=== PATIENT | male | born 1965 | race Caucasian/White ===

== ENCOUNTER → 2016-06-30 | Outpatient (CLI) | payer MEDICARE, MEDICAID | LOC: GMAM 17:35 | PROVIDERS: ATTEND Family Medicine | DX: E83.42 Hypomagnesemia (principal) ==

== ENCOUNTER → 2016-07-09 | Outpatient (CLI) | payer MEDICARE, MEDICAID | LOC: GMAM 12:02 | PROVIDERS: ATTEND Family Medicine | DX: E83.42 Hypomagnesemia (principal) ==

== ENCOUNTER 2016-07-26 09:38 | Emergency (ER) | payer MEDICARE, MEDICAID ==
[2016-07-26 09:53] VITALS: TEMP 95.6
--- NOTE | 2016-07-26 10:09 | ED.PDOC ---
History of Present Illness - General Chief Complaint: Syncope/Near Syncope Stated Complaint: passed out Time Seen by Provider: 07/26/16 09:58 Source: patient Exam Limitations: no limitations - History of Present Illness Initial Comments: PT STOOD UP, STARTED WALKING TO LEAVE THE HOUSE, BECAME LIGHT HEADED, LOST CONSCIOUSNESS MOMENTARILY, THEN AROUSED ON THE FLOOR. HE FELT BACK TO NORMAL BUT EMS NOTICED WHEN PT WAS WALKING, HE WAS STILL SLIGHTLY LIGHT HEADED. WAS IN HOSP IN [facility] FOR P[facility], BUT HAS BEEN BACK TO HIS USUAL HEALTH SINCE. NO SYNCOPE PRIOR TO TODAY. TAKES VERAPAMIL IN QAM FOR HTN. NO H/O SZ. Precipitating Factors: lightheadedness Context: standing Loss of Consciousness: brief (seconds) Current Symptoms: back to normal Allergies/Adverse Reactions: Allergies NO KNOWN ALLERGY Allergy (Verified 06/15/16 10:16) Home Medications: Ambulatory Orders Amitriptyline HCl 75 mg PO BEDTIME 02/26/16 Atorvastatin Calcium [Lipitor] 10 mg PO DAILY 02/26/16 Ehadbqmpop-Koostqnwmvbza-Hzygd [Butalbital/Acetaminophen/] 1 cap PO PRN Cholecalciferol [Vitamin D3] 3,000 unit PO DAILY 02/26/16 Pancrelipase (Lipase-Protease- [Creon] 1 cap PO TID 02/26/16 Prednisone 10 mg PO DAILY 02/26/16 Verapamil HCl [Verelan] 240 mg PO DAILY 02/26/16 tiZANidine [Zanaflex] 4 mg PO TID 02/26/16 Aspirin [Aspirin EC] 81 mg PO DAILY 06/15/16 Doxycycline (Monohydrate) [Adoxa] 100 mg PO BID 06/15/16 Insulin Detemir [Levemir] 25 unit SUBCU DAILY 06/15/16 Review of Systems - Review of Systems Constitutional: States: no symptoms reported EENTM: States: no symptoms reported Respiratory: States: no symptoms reported. Denies: cough, orthopnea, short of breath, stridor, wheezing Cardiology: States: no symptoms reported. Denies: chest pain, edema, palpitations, syncope Gastrointestinal/Abdominal: States: no symptoms reported Genitourinary: States: no symptoms reported Musculoskeletal: States: no symptoms reported Skin: States: no symptoms reported Neurological: States: no symptoms reported. Denies: headache, numbness, paresthesia, tingling, tremors, weakness Endocrine: States: no symptoms reported Hematologic/Lymphatic: States: no symptoms reported Past Medical History (General) - Patient Medical History Hx Seizures: No Hx Stroke: No Hx Dementia: No Hx Asthma: No Hx of COPD: No Hx Cardiac Disorders: No Hx Congestive Heart Failure: No Hx Pacemaker: No Hx Hypertension: Yes Hx Thyroid Disease: No Hx Diabetes: Yes - dx'ed 1998 Hx Gastroesophageal Reflux: No Hx Renal Disease: Yes - kidney transplant in 1994 for hx ESRD Hx Cancer: Yes Hx of HIV: No Hx Hepatitis C: No Hx MRSA: No Surgical History: cholecystectomy - Vaccination History Hx Tetanus, Diphtheria Vaccination: No Hx Influenza Vaccination: Yes Hx Pneumococcal Vaccination: Yes - Social History Hx Tobacco Use: No Hx Alcohol Use: No Hx Substance Use: No Hx Substance Use Treatment: No Hx Depression: No Physical Exam - Physical Exam General Appearance: Comfortable, No apparent distress Eyes, Ears, Nose, Throat Exam: PERRL/EOMI, TMs normal, pharynx normal, other - mucus membranes dry. 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 MOTOR AND SENSORY NL X 4 EXTREMITIES. Coordination/Gait: normal finger to nose Motor/Sensory: no motor deficit, no sensory deficit, no pronator drift Skin Exam: normal color, warm/dry, other - delayed capillary refill. Lymphatic: no adenopathy Progress - Progress Progress: 07/26/16 11:07 ORTHOSTATIC VS: SUPINE: 105/67 PULSE 77 STANDIN/54 PULSE 97 POS ORTHOSTASIS WITH 20 BPM PULSE INCREASE. 07/26/16 11:17 THE PT IS HYPOTENSIVE FROM DEHYDRATION AND TAKES VERAPAMIL FOR HTN. HE WAS REHYDRATED WITH 1L NS FLUID BOLUS. 07/26/16 11:30 TROP NL (0.02) EKG X 2 SINUS WITH PROLONGED QT INTERVAL. NO ST CHANGES. ACUTE HYPOGLYCEMIA: CMP - GLUCOSE 65 SO I ORDERED ACCUCHECK WHICH WAS 56. UPON INQUIRY, PT HASN'T EATEN ANYTHING YET TODAY AND TOOK HIS INSULIN. THUS ORDERED A MEAL. PT TOLERATED IT WELL. ACUTE RENAL FAILURE: BUN 44, CR 1.91. HAS KNOWN CRF. TODAY ARF FROM DEHYDRATION. BOLUSED. 07/26/16 12:06 REPEAT ORTHOSTATIC VS AFTER BOLUS: SUPINE 113/78 PULSE 77. STANDING 98/65 PULSE 91. ORTHOSTASIS IMPROVED. PT STATES HE IS NO LONGER LIGHT HEADED WHEN STANDING AND WALKING AND WOULD LIKE TO SEE HOW HE DOES AT HOME. INSTRUCTED 64 OZ WATER PER DAY MINIMUM AND TO PUSH FLUIDS TODAY. SAFE FOR D/C TO HOME WITH CLOSE F/U. GAVE RETURN PRECAUTIONS. Departure - Departure Clinical Impression: Orthostatic hypotension, Syncope due to orthostatic hypotension, Light- headedness, Hypovolemia due to dehydration, Acute renal failure (ARF), Hypoglycemia associated with diabetes Disposition: Discharge to Home or Self Care Departure Forms: ED Discharge - Pt. Copy, Patient Portal Self Enrollment Instructions: DI for Dehydration -- Adult Diet: diabetic diet Activity: increase activity as tolerated Referrals: Manohar Daigle MD [Primary Care Provider] - 1-2 Days () Home Medications: Ambulatory Orders Amitriptyline HCl 75 mg PO BEDTIME 02/26/16 Atorvastatin Calcium [Lipitor] 10 mg PO DAILY 02/26/16 Nwcpbeqack-Aavjysofvtzij-Ggauc [Butalbital/Acetaminophen/] 1 cap PO PRN Cholecalciferol [Vitamin D3] 3,000 unit PO DAILY 02/26/16 Pancrelipase (Lipase-Protease- [Creon] 1 cap PO TID 02/26/16 Prednisone 10 mg PO DAILY 02/26/16 Verapamil HCl [Verelan] 240 mg PO DAILY 02/26/16 tiZANidine [Zanaflex] 4 mg PO TID 02/26/16 Aspirin [Aspirin EC] 81 mg PO DAILY 06/15/16 Doxycycline (Monohydrate) [Adoxa] 100 mg PO BID 06/15/16 Insulin Detemir [Levemir] 25 unit SUBCU DAILY 06/15/16 Additional Instructions: You became light-headed because your blood pressure was low due to dehydration. Please be sure to drink at least 64 oz of water per day. Tomorrow morning, if your systolic (the top number) of your blood pressure is below 120, then don't take your Verapamil that day. Verapamil is for high blood pressure but if we are dehydrated, it can drop our blood pressure too low , which is what happened in your situation. Please keep your follow-up appointment with your regular doctor for this (and please let him know you were in the ER for low blood pressure, dehydration, and acute kidney damage from the dehydration) but if you continue not feeling well, then please see him sooner this week or return to the ER. Your blood sugar was low in the ER (56). Please be sure to eat something for breakfast each day. Your kidney tests in the ER reflected the dehydration. Please drink at least 64 ounces of water per day to protect your kidneys.
[2016-07-26] MEDS ORDERED: SODIUM CHLORIDE 0.9% 1000ML 1,000 ML IVS ONE (10:16)
[2016-07-26 12:37] VITALS: BP 107/77; O2SAT 95
== END 2016-07-26 12:34 | disposition home or self-care (01) ==
LOC: ER 09:38
DX: I95.1 Orthostatic hypotension (principal); E86.1 Hypovolemia; E86.0 Dehydration; E11.649 Type 2 diabetes mellitus with hypoglycemia without coma; E11.22 Type 2 diabetes mellitus with diabetic chronic kidney disease; N18.6 End stage renal disease; N17.9 Acute kidney failure, unspecified; Z94.0 Kidney transplant status; Z79.4 Long term (current) use of insulin; Z79.82 Long term (current) use of aspirin; Z79.899 Other long term (current) drug therapy; I12.0 Hypertensive chronic kidney disease with stage 5 chronic kidney disease or end stage renal disease
CPT/HCPCS: 36415; 36416; 80053; 82948; 84484; 85025; 93005; J7030

== ENCOUNTER → 2016-08-05 | Outpatient (CLI) | payer MEDICARE, MEDICAID | END | disposition home or self-care (01) | LOC: GMAM 11:50 | PROVIDERS: ATTEND Family Medicine | DX: M10.9 Gout, unspecified (principal) ==

== ENCOUNTER → 2016-08-07 | Outpatient (CLI) | payer MEDICARE, MEDICAID ==
--- NOTE | 2016-08-09 14:47 | MRI ---
EXAM DESCRIPTION: MR BRAIN WITHOUT IV CONTRAST CLINICAL HISTORY: 51 y/o M, SYNCOPE COMPARISON: None available. TECHNIQUE: Multiplanar multi sequence images of the brain were obtained without gadolinium contrast. FINDINGS: Diffusion-weighted images show no diffusion restriction. Midline structures, including the corpus callosum, pituitary and brainstem, are unremarkable period the ventricles are of normal size and configuration. Physiologic vascular flow voids are noted. There are no extra-axial fluid collections. No posterior fossa lesion period there are small areas of increased T2/FLAIR signal involving periventricular and subcortical white matter in both cerebral hemispheres, nonspecific but likely related to chronic ischemic microvascular disease. No additional dietrich or white matter signal abnormalities are noted period visualized paranasal sinuses and orbits unremarkable. There is no calvarial lesion period IMPRESSION: Chronic ischemic microvascular disease, but no additional intracranial abnormality to explain patient's symptoms. Electronically signed by: Jimbo Cevallos DO 08/09/2016 14:45
== END | disposition home or self-care (01) ==
LOC: MRI 07:32
PROVIDERS: ATTEND Family Medicine
DX: R55 Syncope and collapse (principal)

== ENCOUNTER → 2016-08-28 | Outpatient (CLI) | payer MEDICARE, MEDICAID | END | disposition home or self-care (01) | LOC: GMAM 12:27 | PROVIDERS: ATTEND Family Medicine | DX: R94.5 Abnormal results of liver function studies (principal) ==

== ENCOUNTER 2016-10-14 02:45 | Day surgery (SDC) | payer MEDICARE, MEDICAID ==
[2016-10-14] MEDS ORDERED: LACTATED RINGERS 1,000 ML ONE (05:59)
[2016-10-14] MEDS ORDERED: fentaNYL CITRATE INJ 50 MCG/ML AMP ONE (08:11)
--- NOTE | 2016-10-14 09:12 | OP ---
DATE OF PROCEDURE: 10/14/16 PREOPERATIVE DIAGNOSIS: 1. High risk colon cancer screening. The patient has a history of renal transplant and he has neurofibromatosis. POSTOPERATIVE DIAGNOSIS: 1. Diverticulosis. 2. Neurofibromas. PROCEDURE: 1. Colonoscopy. SURGEON: Placido Bingham MD. COMPLICATIONS: None apparent. BLOOD LOSS: None. MEDICATIONS: Monitored anesthesia care. DESCRIPTION OF PROCEDURE: Informed consent was obtained prior to sedation. The preprocedure cardiopulmonary assessment was satisfactory. The patient was placed in the left lateral decubitus position and was sedated. A digital rectal exam was unremarkable. There were no rectal masses noted. The tip of the Olympus colonoscope was inserted in the rectum and guided over to the cecum. The cecum was identified by locating the ileocecal valve and appendiceal orifice. Prep was fair. There were some segments of the colon that had a very good prep, but others that had some residual liquid stool and prep. I tried to irrigate and suction away this to allow better visualization, but there were a few areas where tiny polyps could have been overlooked. The patient did have a few submucosal masses with the appearance of neurofibromas. There were no lesions that appeared to be adenomatous polyps. The patient had a few diverticula in the sigmoid. Otherwise, the colonoscopy was unremarkable. RECOMMENDATIONS: Because of his transplant status, neurofibromatosis, and since the prep was suboptimal, I certainly recommend a followup colonoscopy in 5 years for screening purposes. #[id number] cc: Loren Daigle MD [facility]
[2016-10-14 09:33] VITALS: BP 143/96; TEMP 97.3; O2SAT 97
[2016-10-14] MEDS ORDERED: PROPOFOL 200 MG/20 ML VIAL IV ONE (10:00)
[2016-10-14] MEDS ORDERED: LIDOCAINE 1% 10 ML VIAL INJ ONE (10:00)
== END 2016-10-14 09:30 | disposition home or self-care (01) ==
LOC: AMB 02:45
PROVIDERS: ATTEND Internal Medicine Gastroenterology
DX: Z12.11 Encounter for screening for malignant neoplasm of colon (principal); K57.30 Diverticulosis of large intestine without perforation or abscess without bleeding; Q85.00 Neurofibromatosis, unspecified; E11.9 Type 2 diabetes mellitus without complications; Z94.0 Kidney transplant status; Z87.891 Personal history of nicotine dependence; Z79.4 Long term (current) use of insulin; Z79.899 Other long term (current) drug therapy
CPT/HCPCS: 00810; 82948; G0121; J3010; J3490; J7120

== ENCOUNTER → 2016-11-30 | Outpatient (CLI) | payer MEDICARE, MEDICAID | END | disposition home or self-care (01) | LOC: GMAM 14:21 | PROVIDERS: ATTEND Family Medicine | DX: M10.9 Gout, unspecified (principal) ==

== ENCOUNTER 2017-06-23 05:53 | Day surgery (SDC) | payer MEDICARE, MEDICAID ==
[2017-06-23] MEDS ORDERED: LACTATED RINGERS 1,000 ML ONE (07:35)
[2017-06-23] MEDS ORDERED: PROPOFOL 200 MG/20 ML VIAL IV ONE (10:00)
[2017-06-23] MEDS ORDERED: LIDOCAINE 1% 10 ML VIAL INJ ONE (10:00)
--- NOTE | 2017-06-23 11:51 | OP ---
DATE OF PROCEDURE: 06/23/17 PREOPERATIVE DIAGNOSIS: 1. Iron deficiency anemia. 2. Guaiac-positive stool. POSTOPERATIVE DIAGNOSIS: 1. Esophagitis. 2. Evidence of duodenectomy. PROCEDURE: 1. Esophagogastroduodenoscopy plus biopsy. SURGEON: Placido Bingham MD. COMPLICATIONS: None apparent. BLOOD LOSS: None. MEDICATIONS: Monitored anesthesia care. DESCRIPTION OF PROCEDURE: Informed consent was obtained prior to sedation. The preprocedure cardiopulmonary assessment was satisfactory. The patient was placed in the left lateral decubitus position and was sedated. The tip of the Olympus esophagogastroduodenoscope was inserted in the oropharynx and carefully advanced through the cricopharyngeus into the esophageal lumen. The esophagus was significant for distal esophagitis. This was biopsied. I think this could certainly be a source of fecal occult positive stool. The stomach was examined with direct and retroflexed views. The antrum, body, fundus, cardia and incisura were closely examined. There were no significant neurofibromas seen. There were no ulcerations. There was no evidence of a bleeding source seen in the stomach. The pylorus was traversed with the tip of the scope and once inside the duodenum, there was evidence of a resection and anastomosis. It looks like he has had resection of his duodenum here. He has both afferent and efferent limbs of small bowel here at the anastomosis. I traversed both and did not see any source of a potential bleeding spot in the 40 cm of each limb that I investigated. I did biopsy him for celiac. The procedure was then terminated. RECOMMENDATIONS: 1. I think the esophagitis could be related to his guaiac-positive stool. 2. With his iron deficiency anemia, it does look like he has had a duodenal resection and it is possible he is just not absorbing iron like he should. I would recommend IV iron replacement if needed. 3. He needs a daily proton pump inhibitor. 4. Call my office in one week for the biopsy results. #[id number] cc: Manohar Daigle MD [facility]
[2017-06-23 13:49] VITALS: O2SAT 98
[2017-06-23 13:56] VITALS: BP 144/93; TEMP 97.7
== END 2017-06-23 12:10 | disposition home or self-care (01) ==
LOC: AMB 05:53
PROVIDERS: ATTEND Internal Medicine Gastroenterology
DX: D50.9 Iron deficiency anemia, unspecified (principal); K20.9 Esophagitis, unspecified; R19.5 Other fecal abnormalities; Q85.00 Neurofibromatosis, unspecified; I10 Essential (primary) hypertension; E11.9 Type 2 diabetes mellitus without complications; E66.9 Obesity, unspecified; J45.909 Unspecified asthma, uncomplicated; Z68.27 Body mass index [BMI] 27.0-27.9, adult; Z87.891 Personal history of nicotine dependence; Z79.4 Long term (current) use of insulin; Z79.899 Other long term (current) drug therapy
CPT/HCPCS: 00740; 36416; 43239; 82948; 88305; J3490; J7120

== ENCOUNTER 2017-06-26 10:08 | Emergency (ER) | payer MEDICARE, MEDICAID ==
[2017-06-26 10:22] VITALS: TEMP 97.3
--- NOTE | 2017-06-26 10:27 | ED.PDOC ---
History of Present Illness - General Chief Complaint: Respiratory Problem Stated Complaint: trouble breathing,legs weak Time Seen by Provider: 06/26/17 10:23 Source: patient, RN notes reviewed, Vital Signs reviewed Additional Information: Pt presents to ER with family member complaining of lower extremity weakness, inability to stand without shaking and difficulty walking. Pt reports noticing this upon waking up this am. He denies other symptoms. He denies difficulty walking last night. - History of Present Illness Timing/Duration: unsure - , just noticed it this am. Severity: moderate Improving Factors: nothing Worsening Factors: nothing Associated Symptoms: weakness - primarily lower extremities Allergies/Adverse Reactions: Allergies NO KNOWN ALLERGY Allergy (Verified 06/15/16 10:16) Home Medications: Ambulatory Orders Amitriptyline HCl 75 mg PO BEDTIME 02/26/16 Atorvastatin Calcium [Lipitor] 10 mg PO DAILY@0700 02/26/16 Odmhqipmws-Hfllioqowngyi-Yysjc [Butalbital/Acetaminophen/] 1 cap PO PRN Cholecalciferol [Vitamin D3] 3,000 unit PO BID 02/26/16 Pancrelipase (Lipase-Protease- [Creon] 1 cap PO TID 02/26/16 Prednisone 10 mg PO DAILY@0700 02/26/16 Verapamil HCl [Verelan] 240 mg PO DAILY@0700 02/26/16 tiZANidine [Zanaflex] 4 mg PO TID 02/26/16 Aspirin [Aspirin EC] 81 mg PO DAILY@0700 06/15/16 Insulin Detemir [Levemir] 25 unit SUBCU QPM 06/15/16 Dietary Management Product [Gabadone] 1 cap PO BEDTIME 06/16/17 Insulin Aspart [Novolog Flexpen] 12 unit SC TID 06/16/17 Review of Systems - Review of Systems Constitutional: States: no symptoms reported EENTM: States: no symptoms reported Respiratory: States: no symptoms reported Cardiology: States: no symptoms reported Gastrointestinal/Abdominal: States: no symptoms reported Genitourinary: States: no symptoms reported Musculoskeletal: States: see HPI Neurological: States: see HPI, weakness - lower extremities Endocrine: States: no symptoms reported Hematologic/Lymphatic: States: no symptoms reported Past Medical History (General) - Patient Medical History Hx Seizures: No Hx Stroke: No Hx Dementia: No Hx Asthma: No Hx of COPD: No Hx Cardiac Disorders: No Hx Congestive Heart Failure: Yes Hx Pacemaker: No Hx Hypertension: Yes Hx Thyroid Disease: No Hx Diabetes: Yes Hx Gastroesophageal Reflux: No Hx Renal Disease: Yes - kidney transplant in 1994 for hx ESRD Hx Cancer: Yes Hx of HIV: No Hx Hepatitis C: No Hx MRSA: No - Vaccination History Hx Tetanus, Diphtheria Vaccination: No Hx Influenza Vaccination: Yes Hx Pneumococcal Vaccination: Yes - Social History Hx Tobacco Use: No Hx Alcohol Use: No Hx Substance Use: No Hx Substance Use Treatment: No Hx Depression: No Family Medical History - Family History Father Family History: Unknown Living Status: Unknown Hx Family Hypertension: Yes Hx Cardiac Disease: Yes Hx Family;Other: neurofibromatosis mom/sister Physical Exam - Physical Exam General Appearance: Alert, No apparent distress - at rest Eye Exam: bilateral abnormal EOM - sluggish, bilaterally Ears, Nose, Throat: hearing grossly normal Neck: non-tender, full range of motion, supple Respiratory: normal breath sounds, no respiratory distress, no accessory muscle use Cardiovascular/Chest: normal peripheral pulses, regular rate, rhythm, no murmur Gastrointestinal/Abdominal: non tender, soft Back Exam: normal inspection Extremity: normal capillary refill 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 Labs and CT Head obtained. History and exam concerning for Central vs Peripheral Neurologic disorder. No respiratory distress noted. No pain reported. Labs and CT Scan reviewed with patient. Patient will likely benefit from transfer to facility with Neurology. - Results/Orders Results/Orders: CXR Report: PROCEDURE: XR CHEST 1 VIEW HISTORY: sob COMPARISON: 06/08/2016 TECHNIQUE: Single projection of the chest was done. FINDINGS: The lung cabezas are well inflated . There are no discrete airspace infiltrates, pneumothoraces or pleural effusions. The pulmonary vascularity is normal. The cardiomediastinal silhouette is stable. IMPRESSION: There is no acute pleural- parenchymal process seen in the imaged lung cabezas. CT Head Impression: IMPRESSION: There is no acute intracranial abnormality. 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 Laboratory Results - last 24 hr 06/26/17 06/26/17 06/26/17 10:39 10:39 10:39 WBC 21.2 H* RBC 4.63 L Hgb 13.2 L Hct 40.8 L MCV 88.0 MCH 28.5 MCHC 32.4 L RDW 14.3 Plt Count 234 MPV 11.6 H Absolute Neuts (auto) 17.50 H Absolute Lymphs (auto) 0.90 L Absolute Monos (auto) 2.60 H Absolute Eos (auto) 0.10 Absolute Basos (auto) 0.10 Neutrophils % 82.6 H Neutrophils % (Manual) 61.0 Lymphocytes % 4.2 L Lymphocytes % (Manual) 5.0 Monocytes % 12.2 H Monocytes % (Manual) 12.0 Eosinophils % 0.3 L Basophils % 0.7 Band Neutrophils 22.0 Sodium 139 Potassium 4.0 Chloride 106 Carbon Dioxide 20 L Anion Gap 17.0 BUN 54 H Creatinine 2.73 H BUN/Creatinine Ratio 19.8 Random Glucose 84 Serum Osmolality 291.5 Calcium 9.9 Magnesium Total Bilirubin 0.5 AST 12 ALT 11 Alkaline Phosphatase 98 Creatine Kinase 50 CK-MB (CK-2) 3.3 CK-MB (CK-2) % Not Reportable Troponin I < 0.02 B-Natriuretic Peptide 216.0 H* Serum Total Protein 8.3 H Albumin 4.0 Globulin 4.3 H Albumin/Globulin Ratio 0.9 L TSH Urine Color Urine Appearance Urine pH Ur Specific Tarrs Urine Protein Urine Glucose (UA) Urine Ketones Urine Blood Urine Nitrite Urine Bilirubin Urine Urobilinogen Ur Leukocyte Esterase Urine RBC Urine WBC Ur Epithelial Cells Urine Bacteria Salicylates Urine Opiates Screen Acetaminophen Urine Barbiturates Ur Phencyclidine Scrn U Amphetamin/Meth Scrn U Benzodiazepines Scrn U Cocaine Metab Screen U Cannabinoids Screen Ethyl Alcohol 06/26/17 06/26/17 06/26/17 11:17 11:17 11:47 WBC RBC Hgb Hct MCV MCH MCHC RDW Plt Count MPV Absolute Neuts (auto) Absolute Lymphs (auto) Absolute Monos (auto) Absolute Eos (auto) Absolute Basos (auto) Neutrophils % Neutrophils % (Manual) Lymphocytes % Lymphocytes % (Manual) Monocytes % Monocytes % (Manual) Eosinophils % Basophils % Band Neutrophils Sodium Potassium Chloride Carbon Dioxide Anion Gap BUN Creatinine BUN/Creatinine Ratio Random Glucose Serum Osmolality Calcium Magnesium Total Bilirubin AST ALT Alkaline Phosphatase Creatine Kinase CK-MB (CK-2) CK-MB (CK-2) % Troponin I B-Natriuretic Peptide Serum Total Protein Albumin Globulin Albumin/Globulin Ratio TSH Urine Color Urine Appearance Urine pH Ur Specific Tarrs Urine Protein Urine Glucose (UA) Urine Ketones Urine Blood Urine Nitrite Urine Bilirubin Urine Urobilinogen Ur Leukocyte Esterase Urine RBC Urine WBC Ur Epithelial Cells Urine Bacteria Salicylates < 4.0 Urine Opiates Screen Negative Acetaminophen < 10.0 L Urine Barbiturates Negative Ur Phencyclidine Scrn Negative U Amphetamin/Meth Scrn Negative U Benzodiazepines Scrn Negative U Cocaine Metab Screen Negative U Cannabinoids Screen Negative Ethyl Alcohol < 5.40 06/26/17 06/26/17 12:13 12:14 WBC RBC Hgb Hct MCV MCH MCHC RDW Plt Count MPV Absolute Neuts (auto) Absolute Lymphs (auto) Absolute Monos (auto) Absolute Eos (auto) Absolute Basos (auto) Neutrophils % Neutrophils % (Manual) Lymphocytes % Lymphocytes % (Manual) Monocytes % Monocytes % (Manual) Eosinophils % Basophils % Band Neutrophils Sodium Potassium Chloride Carbon Dioxide Anion Gap BUN Creatinine BUN/Creatinine Ratio Random Glucose Serum Osmolality Calcium Magnesium 1.8 Total Bilirubin AST ALT Alkaline Phosphatase Creatine Kinase CK-MB (CK-2) CK-MB (CK-2) % Troponin I B-Natriuretic Peptide Serum Total Protein Albumin Globulin Albumin/Globulin Ratio TSH 4.25 Urine Color Yellow Urine Appearance Clear Urine pH 5.5 Ur Specific Tarrs 1.015 Urine Protein Negative Urine Glucose (UA) 500 H Urine Ketones Negative Urine Blood Negative Urine Nitrite Negative Urine Bilirubin Small H Urine Urobilinogen 0.2 Ur Leukocyte Esterase Negative Urine RBC 0 Urine WBC 0 Ur Epithelial Cells 0 Urine Bacteria 0 Salicylates Urine Opiates Screen Acetaminophen Urine Barbiturates Ur Phencyclidine Scrn U Amphetamin/Meth Scrn U Benzodiazepines Scrn U Cocaine Metab Screen U Cannabinoids Screen Ethyl Alcohol 06/26/17 06/26/17 06/26/17 10:14 11:57 14:51 Temperature 97.3 F L Pulse Rate [ 102 H 88 81 Left Brachial] Respiratory 20 20 20 Rate Blood Pressure 92/61 107/67 143/87 [Left Arm] O2 Sat by Pulse 100 97 97 Oximetry Departure - Departure Clinical Impression: Acute renal failure (ARF) Qualifiers: Acute renal failure type: unspecified Qualified Code(s): N17.9 - Acute kidney failure, unspecified Lower extremity weakness Qualifiers: Laterality: bilateral Qualified Code(s): R29.898 - Other symptoms and signs involving the musculoskeletal system Time of Disposition: 14:39 Disposition: Transfer to Hospital Departure Forms: ED Discharge - Pt. Copy, Patient Portal Self Enrollment Referrals: Manohar Daigle MD [Primary Care Provider] - 1-2 Weeks Home Medications: Ambulatory Orders Amitriptyline HCl 75 mg PO BEDTIME 02/26/16 Atorvastatin Calcium [Lipitor] 10 mg PO DAILY@0702/26/16 Eohlsgnbtf-Aketzsemynrzm-Bxcwq [Butalbital/Acetaminophen/] 1 cap PO PRN Cholecalciferol [Vitamin D3] 3,000 unit PO BID 02/26/16 Pancrelipase (Lipase-Protease- [Creon] 1 cap PO TID 02/26/16 Prednisone 10 mg PO DAILY@0702/26/16 Verapamil HCl [Verelan] 240 mg PO DAILY@0702/26/16 tiZANidine [Zanaflex] 4 mg PO TID 02/26/16 Aspirin [Aspirin EC] 81 mg PO DAILY@0706/15/16 Insulin Detemir [Levemir] 25 unit SUBCU QPM 06/15/16 Dietary Management Product [Gabadone] 1 cap PO BEDTIME 06/16/17 Insulin Aspart [Novolog Flexpen] 12 unit SC TID 06/16/17
[2017-06-26] MEDS ORDERED: SODIUM CHLORIDE 0.9% 1000ML 1,000 ML IVS ONE (11:11)
--- NOTE | 2017-06-26 11:12 | RAD ---
PROCEDURE: XR CHEST 1 VIEW HISTORY: sob COMPARISON: 06/08/2016 TECHNIQUE: Single projection of the chest was done. FINDINGS: The lung cabezas are well inflated . There are no discrete airspace infiltrates, pneumothoraces or pleural effusions. The pulmonary vascularity is normal. The cardiomediastinal silhouette is stable. IMPRESSION: There is no acute pleural-parenchymal process seen in the imaged lung cabezas. Location of Interpretation: Teleradiology Electronically signed by: Herman Samaniego MD 06/26/2017 11:11 AM [facility] Workstation: [id number]
[2017-06-26 11:57] VITALS: O2SAT 97
--- NOTE | 2017-06-26 12:12 | CT ---
PROCEDURE: Head HISTORY: generalized weakness Indication: Same as above Comparison: MRI of the brain done on 08/07/2016 Technique: CT of the head was done without intravenous contrast was done in the orthogonal planes. This exam was performed according to our departmental dose-optimization program, which includes automated exposure control, adjustment of the mA and/or KV according to the patient's size and/or use of iterative reconstruction technique. FINDINGS: There is no intracranial hemorrhage, midline shift mass effect or acute focal infarct. There is bifrontal cerebral and bilateral cerebellar atrophy, slightly unusual for patient's age. 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 If clinical concern exists regarding an acute ischemic/vascular pathology being responsible for patient's symptomatology, an MRI of the brain is more sensitive than the current study, in ruling out such a possibility. There is good dietrich/white matter differentiation. The ventricular system is normal. The mastoid air cells are unremarkable . The paranasal sinuses are unremarkable . There is no visualization of acute fractures involving the calvarium or the skull base. IMPRESSION: There is no acute intracranial abnormality. 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 Electronically signed by: Herman Samaniego MD 06/26/2017 12:11 PM [facility] Workstation: [id number]
[2017-06-26 14:52] VITALS: BP 143/87
== END 2017-06-26 14:52 | disposition short-term general hospital (02) ==
LOC: ER 10:08
DX: N17.9 Acute kidney failure, unspecified (principal); R29.898 Other symptoms and signs involving the musculoskeletal system; I11.0 Hypertensive heart disease with heart failure; I50.9 Heart failure, unspecified; Z94.0 Kidney transplant status; Z79.4 Long term (current) use of insulin; Z85.9 Personal history of malignant neoplasm, unspecified; Z79.82 Long term (current) use of aspirin
CPT/HCPCS: 36415; 70450; 71010; 80053; 80307; 80320; 80329; 81001; 82550; 82553; 83735; 83880; 84443; 84484; 85025; J7030

== ENCOUNTER → 2017-07-19 | Outpatient (CLI) | payer MEDICARE, MEDICAID | END | disposition home or self-care (01) | LOC: GMAM 12:04 | PROVIDERS: ATTEND Family Medicine | DX: N18.3 Chronic kidney disease, stage 3 (moderate) (principal); M10.9 Gout, unspecified ==

== ENCOUNTER → 2017-08-17 | Outpatient (CLI) | payer MEDICARE, MEDICAID | LOC: GMAM 14:57 | PROVIDERS: ATTEND Family Medicine | DX: M10.9 Gout, unspecified (principal) ==

== ENCOUNTER → 2017-09-29 | Outpatient (CLI) | payer MEDICARE, MEDICAID | END | disposition home or self-care (01) | LOC: GMAM 10:30 | PROVIDERS: ATTEND Family Medicine | DX: E55.9 Vitamin D deficiency, unspecified (principal); M10.9 Gout, unspecified; Z79.899 Other long term (current) drug therapy; N39.0 Urinary tract infection, site not specified ==

== ENCOUNTER 2017-10-14 05:40 | Day surgery (SDC) | payer MEDICARE, MEDICAID ==
--- NOTE | 2017-10-11 10:13 | RAD ---
EXAM DESCRIPTION: Chest,2 Views CLINICAL HISTORY: PREOP COMPARISON: Previous study June 26, 2017 TECHNIQUE: PA/lateral FINDINGS: There is no acute appearing cardiac or pulmonary abnormality. Heart size is normal with normal pulmonary vascularity. No pleural effusion or pneumothorax. Lungs are clear with no consolidating infiltrate. Lateral view shows intact sternum and T-spine. IMPRESSION: No acute process is identified in the chest. Electronically signed by: Henry Madison MD 10/11/2017 10:09 AM CDT
[2017-10-14] MEDS ORDERED: BUPIVACAINE 0.25% W/EPI 50 ML VIAL INJ ONE (07:20)
[2017-10-14] MEDS ORDERED: ceFAZolin SODIUM 1 GM VIAL ONE (07:21)
[2017-10-14] MEDS ORDERED: LACTATED RINGERS 1,000 ML ONE (07:21)
[2017-10-14] MEDS ORDERED: SODIUM CHL 0.9% 100ML MINI-BAG 100 ML IVPB ONE (07:21)
[2017-10-14] MEDS ORDERED: fentaNYL CITRATE INJ 50 MCG/ML AMP ONE (08:29)
[2017-10-14] MEDS ORDERED: MIDAZOLAM INJ 2 MG/2 ML VIAL ONE (08:29)
[2017-10-14] MEDS ORDERED: HYDROmorphone HCL INJ 2 MG/ML VIAL ONE (09:09)
[2017-10-14] MEDS ORDERED: ROCURONIUM BROMIDE 10 MG/ML VIAL ONE (09:38)
[2017-10-14] MEDS ORDERED: SUGAMMADEX SODIUM 200 MG/2 ML VIAL IV ONE (09:58)
[2017-10-14] MEDS ORDERED: LEVALBUTEROL NEBS 1.25 MG/3 ML VIAL NEB ONE (10:27)
--- NOTE | 2017-10-14 11:30 | OP ---
DATE OF PROCEDURE: 10/14/17 PREOPERATIVE DIAGNOSIS: 1. Reducible umbilical hernia. POSTOPERATIVE DIAGNOSIS: 1. Reducible umbilical hernia with two small reducible incisional hernias superior to the umbilicus. PROCEDURE: 1. Repair of incisional hernia times 2. 2. Repair of umbilical hernia. 3. Placement of Surgimesh Onlay graft. SURGEON: Bk Pelayo MD. WAREHOUSE TRAINER: None. ANESTHESIA: General laryngeal mask and then endotracheal anesthesia and local infiltration of 1% lidocaine. INDICATION: The patient is a 52-year-old male with multiple medical problems that has received cardiac stratification and allowed us to stop his aspirin for 5 days. The patient was brought to the Surgical Suite today for what was thought to be a small reducible umbilical hernia. Upon dissection of the fascia to place mesh, two small incisional hernias were noted superior to the umbilicus. These were likely where suture had pulled through. These were both approximately 1 to 1.5 cm in length and approximately 3 mm across. They ran transversely. The umbilicus had approximately a 2 cm defect transversely and about 1 cm craniocaudad. They all contained some fat which was easily reducible. PROCEDURE: After adequate general laryngeal mask anesthesia was obtained, the patient was prepped and draped in the usual sterile manner. At this point, a surgical time-out was taken. The infraumbilical area was then infiltrated with local anesthesia and a curvilinear but generally transverse incision was made with a sharp knife. Dissection was carried down through the skin and subcutaneous tissue to the midline fascia. When this was done, the retractors were placed and the subcutaneous tissue was dissected free from the umbilical hernia using blunt dissection and electrocautery. When this was completed, the neck of the hernia was incised at its base just superior to the level of the fascia. When it was opened on the inferior aspect, hemostat was introduced and the fat was removed from the hernia and reduced below the floor of the canal. The remaining hernia sac was transected. When this was done, the first hernia was identified just superior and to the patient's right side from the umbilical hernia and the fat from this was reduced below it and it was closed with two [id number] sutures of 2-0 Prolene. At this point, the umbilical hernia was closed with four mctkcu-xe-yseyn sutures of #1 PDS placed serially and then tied superiorly. When this was done, the subcutaneous tissue around the two hernias was dissected free using electrocautery and blunt dissection. When this was done, a second hernia was identified superior to the previous one by about 1.5 cm. It was likewise closed after reducing the fat below the fascia. It was also closed with 2-0 Prolene. When this was done, an approximately 8 by 5 cm oval shaped mesh patch was introduced and sutured over all three repairs with interrupted 2-0 Prolene and 2-0 Vicryl sutures around the margins. When this was done, the wound was irrigated with saline. Hemostasis was noted to be adequate. The umbilicus was then sutured to the fascia and abdominal wall with a [id number] suture of 3-0 Vicryl. The subcutaneous tissues were reapproximated with interrupted 3-0 Vicryl and skin edges were reapproximated with the skin stapler. Sterile pressure dressing was applied. Abdominal binder was applied. The patient was awakened and taken to the Recovery Room in stable condition. Estimated blood loss was less than 75 mL. All sponge, needle and instrument counts were correct. #[id number] [facility]
[2017-10-14 11:32] VITALS: O2SAT 94
[2017-10-14 12:19] VITALS: TEMP 98.2
[2017-10-14 13:30] VITALS: BP 156/84
[2017-10-14] MEDS ORDERED: DEXAMETHASONE INJ 10 MG/ML VIAL ONE (16:10)
[2017-10-14] MEDS ORDERED: raNITIdine HCL INJ 25 MG/ML VIAL ONE (16:10)
[2017-10-14] MEDS ORDERED: LIDOCAINE 1% 10 ML VIAL INJ ONE (16:10)
[2017-10-14] MEDS ORDERED: PROPOFOL 200 MG/20 ML VIAL IV ONE (16:10)
[2017-10-14] MEDS ORDERED: METOCLOPRAMIDE HCL INJ 10 MG/2 ML VIAL ONE (16:10)
== END 2017-10-14 13:20 | disposition home or self-care (01) ==
LOC: AMB 05:40
PROVIDERS: ATTEND Surgery
DX: K42.9 Umbilical hernia without obstruction or gangrene (principal); K43.2 Incisional hernia without obstruction or gangrene; K21.9 Gastro-esophageal reflux disease without esophagitis; J45.909 Unspecified asthma, uncomplicated; I12.9 Hypertensive chronic kidney disease with stage 1 through stage 4 chronic kidney disease, or unspecified chronic kidney disease; E11.22 Type 2 diabetes mellitus with diabetic chronic kidney disease; N18.3 Chronic kidney disease, stage 3 (moderate); F32.9 Major depressive disorder, single episode, unspecified; F41.9 Anxiety disorder, unspecified; G89.29 Other chronic pain; M54.5 Low back pain; E78.2 Mixed hyperlipidemia; G61.0 Guillain-Barre syndrome; Z94.0 Kidney transplant status; Z90.5 Acquired absence of kidney; Z79.82 Long term (current) use of aspirin; Z79.4 Long term (current) use of insulin; Z79.899 Other long term (current) drug therapy
CPT/HCPCS: 00830; 36416; 49560; 49568; 49585; 71046; 80053; 81001; 82948; 85007; 85025; 93005; 94640; C1781; J0690; J1100; J1170; J2250; J2765; J2780; J3010; J3490; J7050; J7120; J7614

== ENCOUNTER 2017-12-22 11:57 | Emergency (ER) | payer OTHER, MEDICAID ==
--- NOTE | 2017-12-22 12:04 | ED.PDOC ---
History of Present Illness - General Chief Complaint: Diabetic Complaint Time Seen by Provider: 12/22/17 11:58 Source: patient, RN notes reviewed, Vital Signs reviewed, EMS notes reviewed Exam Limitations: no limitations - History of Present Illness Timing/Duration: 1 hour Severity: moderate Improving Factors: rest Worsening Factors: nothing Associated Symptoms: diaphoresis, nausea/vomiting, weakness, other - pt ate roca this am and took normal amount of diabetes medications. states that started to feel weak at the eye doctor today. EMS reports that BS was 50's when they showed up and tried oral glucose but BS continue to drop and gave patient an amp of d50. Currently BS is 200's per EMS. Pt reports that currently has no symptoms aside from baseline generalized tremor. No chest pain, sob, abd, numbness or focal weakness. Allergies/Adverse Reactions: Allergies NO KNOWN ALLERGY Allergy (Verified 06/15/16 10:16) Home Medications: Ambulatory Orders Amitriptyline HCl 75 mg PO BEDTIME 02/26/16 Atorvastatin Calcium [Lipitor] 10 mg PO DAILY@0700 02/26/16 Mpirtuqjnm-Fyonpisixqqqx-Geskw [Butalbital/Acetaminophen/] 1 cap PO PRN Cholecalciferol [Vitamin D3] 3,000 unit PO BID 02/26/16 Pancrelipase (Lipase-Protease- [Creon] 1 cap PO TID 02/26/16 Prednisone 7.5 mg PO DAILY@0702/26/16 Verapamil HCl [Verelan] 240 mg PO DAILY@0700 02/26/16 tiZANidine [Zanaflex] 4 mg PO TID 02/26/16 Aspirin [Aspirin EC] 81 mg PO DAILY@0700 06/15/16 Insulin Detemir [Levemir] 25 unit SUBCU QPM 06/15/16 Dietary Management Product [Gabadone] 1 cap PO BEDTIME 06/16/17 Insulin Aspart [Novolog Flexpen] 12 unit SC TID 06/16/17 Albuterol Inhaler PRN 10/08/17 Allopurinol 100 mg PO DAILY 10/08/17 Gabapentin 300 mg PO TID 10/08/17 Lisinopril 2.5 mg PO DAILY 10/08/[address] DAILY 10/08/17 Oxtellar Xr 150 mg PO BEDTIME 10/08/17 Prilosec 20 mg PO DAILY 10/08/17 Stiolto Respimat 2.5-2.5 Mcg/Act DAILY 10/08/17 Tacrolimus 1 mg PO BID 10/08/17 Review of Systems - Review of Systems Constitutional: States: weakness - non focal EENTM: States: other - dry mouth. Denies: eye pain, tearing, double vision, ear pain, ear discharge, nose pain, nose congestion, throat pain, throat swelling, mouth pain, mouth swelling Respiratory: Denies: cough, orthopnea, short of breath, stridor, wheezing Cardiology: Denies: chest pain, edema, palpitations, syncope Gastrointestinal/Abdominal: States: nausea. Denies: abdominal pain, constipation, diarrhea, vomiting Genitourinary: Denies: dysuria, frequency, hematuria, pain Musculoskeletal: Denies: back pain, joint pain, joint swelling, muscle pain, muscle stiffness Skin: States: other - diaphoresis Endocrine: States: no symptoms reported Hematologic/Lymphatic: States: no symptoms reported Past Medical History (General) - Patient Medical History Hx Seizures: No Hx Stroke: No Hx Dementia: No Hx Asthma: No Hx of COPD: No Hx Cardiac Disorders: No Hx Congestive Heart Failure: No Hx Pacemaker: No Hx Hypertension: Yes Hx Thyroid Disease: No Hx Diabetes: Yes Hx Gastroesophageal Reflux: No Hx Renal Disease: Yes - kidney transplant in 1994 for hx ESRD Hx Cancer: Yes Hx of HIV: No Hx Hepatitis C: No Hx MRSA: No - Vaccination History Hx Tetanus, Diphtheria Vaccination: No Hx Influenza Vaccination: Yes Hx Pneumococcal Vaccination: Yes - Social History Hx Tobacco Use: No Hx Alcohol Use: No Hx Substance Use: No Hx Substance Use Treatment: No Hx Depression: No Family Medical History - Family History Father Family History: Unknown Living Status: Unknown Hx Family Hypertension: Yes Hx Cardiac Disease: Yes Hx Family;Other: neurofibromatosis mom/sister Physical Exam - Physical Exam General Appearance: Alert, Well Developed, Well Groomed, Well Nourished Eye Exam: bilateral normal Ears, Nose, Throat: hearing grossly normal, normal ENT inspection, other - dry membranes Neck: non-tender, full range of motion, supple Respiratory: chest non-tender, lungs clear, normal breath sounds, no respiratory distress, no accessory muscle use Cardiovascular/Chest: normal peripheral pulses, regular rate, rhythm, no edema, no gallop, no JVD, no murmur Peripheral Pulses: radial,right: 2+, radial,left: 2+ Gastrointestinal/Abdominal: non tender, soft Back Exam: normal inspection, no CVA tenderness, no vertebral tenderness Extremity: normal range of motion, non-tender, normal inspection, no calf tenderness, pedal edema 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, no motor/sensory deficits, alert, normal mood/affect, oriented x 3 Skin Exam: normal color Lymphatic: no adenopathy Progress - Progress Progress: 12/22/17 13:23 previous cr was 1.4 in 12/22/17 14:16 12/22/17 13:15 GLUCOSE, FINGER STICK Stat 12/22/17 Lunch 1999 Calorie ADA Diet Laboratory Results WBC 11.4 K/mm3 (4.8-10.8) H 12/22/17 12:20 RBC 3.75 M/mm3 (4.70-6.10) L 12/22/17 12:20 Hgb 10.9 gm/dL (14.0-18.0) L 12/22/17 12:20 Hct 33.8 % (42.0-52.0) L 12/22/17 12:20 MCV 90.2 fl (80.0-94.0) 12/22/17 12:20 MCH 29.0 pg (27.0-31.0) 12/22/17 12:20 MCHC 32.2 g/dL (33.0-37.0) L 12/22/17 12:20 RDW 15.4 % (11.5-14.5) H 12/22/17 12:20 Plt Count 201 K/mm3 (130-400) 12/22/17 12:20 MPV 10.8 fl (7.40-10.4) H 12/22/17 12:20 Absolute Neuts (auto) 9.40 K/uL (1.8-6.8) H 12/22/17 12:20 Absolute Lymphs (auto) 0.70 K/uL (1.0-3.4) L 12/22/17 12:20 Absolute Monos (auto) 1.10 K/uL (0.2-0.8) H 12/22/17 12:20 Absolute Eos (auto) 0.10 K/uL (0.0-0.4) 12/22/17 12:20 Absolute Basos (auto) 0.10 K/uL (0.0-0.1) 12/22/17 12:20 Neutrophils % 82.2 % (42.0-78.0) H 12/22/17 12:20 Lymphocytes % 6.5 % (20.0-50.0) L 12/22/17 12:20 Monocytes % 9.4 % (2.0-9.0) H 12/22/17 12:20 Eosinophils % 0.9 % (1.0-5.0) L 12/22/17 12:20 Basophils % 1.0 % (0.0-2.0) 12/22/17 12:20 Sodium 139 mmol/L (135-145) 12/22/17 12:20 Potassium 4.3 mmol/L (3.6-5.0) 12/22/17 12:20 Chloride 110 mmol/L (101-111) 12/22/17 12:20 Carbon Dioxide 21 mmol/L (21-31) 12/22/17 12:20 Anion Gap 12.3 (12-18) 12/22/17 12:20 BUN 41 mg/dL (7-18) H 12/22/17 12:20 Creatinine 2.09 mg/dL (0.6-1.3) H 12/22/17 12:20 BUN/Creatinine Ratio 19.6 (10-20) 12/22/17 12:20 POC Glucose 168 mg/dL (70-105) H 12/22/17 12:55 Random Glucose 174 mg/dL (70-105) H 12/22/17 12:20 Serum Osmolality 291.8 mOsm/L (275-295) 12/22/17 12:20 Calcium 8.8 mg/dL (8.4-10.2) 12/22/17 12:20 Total Bilirubin 0.8 mg/dL (0.2-1.0) 12/22/17 12:20 AST 13 IU/L (10-42) 12/22/17 12:20 ALT 12 IU/L (10-60) 12/22/17 12:20 Alkaline Phosphatase 108 IU/L (42-121) 12/22/17 12:20 Creatine Kinase 67 IU/L (38-174) 12/22/17 12:20 CK-MB (CK-2) 1.7 ng/mL (0.0-4.4) 12/22/17 12:20 CK-MB (CK-2) % Not Reportable 12/22/17 12:20 Troponin I < 0.02 ng/mL (0.01-0.05) 12/22/17 12:20 Serum Total Protein 6.7 gm/dL (6.4-8.2) 12/22/17 12:20 Albumin 3.3 g/dl (3.2-5.5) 12/22/17 12:20 Globulin 3.4 gm/dL (2.3-3.5) 12/22/17 12:20 Albumin/Globulin Ratio 1.0 (1.1-1.9) L 12/22/17 12:20 Urine Color Yellow (Yellow) 12/22/17 13:37 Urine Appearance Clear (Clear) 12/22/17 13:37 Urine pH 5.5 (4.5-7.8) 12/22/17 13:37 Ur Specific [place] 1.025 (1.005-1.030) 12/22/17 13:37 Urine Protein >=300 mg/dL H 12/22/17 13:37 Urine Glucose (UA) 100 mg/dL (Negative) H 12/22/17 13:37 Urine Ketones Negative mg/dL (NEGATIVE) 12/22/17 13:37 Urine Blood Small (Negative) H 12/22/17 13:37 Urine Nitrite Negative 12/22/17 13:37 Urine Bilirubin Negative (NEGATIVE) 12/22/17 13:37 Urine Urobilinogen 1.0 mg/dL (0.2-1.0) 12/22/17 13:37 Ur Leukocyte Esterase Negative (Negative) 12/22/17 13:37 Urine RBC 1-3 /hpf 12/22/17 13:37 Urine WBC 0-1 /hpf 12/22/17 13:37 Ur Epithelial Cells 0 /hpf 12/22/17 13:37 Urine Bacteria Rare 12/22/17 13:37 Departure - Departure Clinical Impression: Hypoglycemia due to insulin, Dehydration, Creatinine elevation, Glucose found in urine on examination Protein in urine Qualifiers: Proteinuria type: unspecified Qualified Code(s): R80.9 - Proteinuria, unspecified Time of Disposition: 14:17 Disposition: Discharge to Home or Self Care Condition: Excellent Departure Forms: ED Discharge - Pt. Copy, Patient Portal Self Enrollment Instructions: DI for Diabetes Type 2 Diet: diabetic diet Activity: increase activity as tolerated Referrals: Manohar Daigle MD [Primary Care Provider] - 1-2 Days (needs repeat Cr. check) Home Medications: Ambulatory Orders Amitriptyline HCl 75 mg PO BEDTIME 02/26/16 Atorvastatin Calcium [Lipitor] 10 mg PO DAILY@0700 02/26/16 Xefnhtdbie-Czbzdahirwalk-Jrjtd [Butalbital/Acetaminophen/] 1 cap PO PRN Cholecalciferol [Vitamin D3] 3,000 unit PO BID 02/26/16 Pancrelipase (Lipase-Protease- [Creon] 1 cap PO TID 02/26/16 Prednisone 7.5 mg PO DAILY@0702/26/16 Verapamil HCl [Verelan] 240 mg PO DAILY@0702/26/16 tiZANidine [Zanaflex] 4 mg PO TID 02/26/16 Aspirin [Aspirin EC] 81 mg PO DAILY@0706/15/16 Insulin Detemir [Levemir] 25 unit SUBCU QPM 06/15/16 Dietary Management Product [Gabadone] 1 cap PO BEDTIME 06/16/17 Insulin Aspart [Novolog Flexpen] 12 unit SC TID 06/16/17 Albuterol Inhaler PRN 10/08/17 Allopurinol 100 mg PO DAILY 10/08/17 Gabapentin 300 mg PO TID 10/08/17 Lisinopril 2.5 mg PO DAILY 10/08/[address] DAILY 10/08/17 Oxtellar Xr 150 mg PO BEDTIME 10/08/17 Prilosec 20 mg PO DAILY 10/08/17 Stiolto Respimat 2.5-2.5 Mcg/Act DAILY 10/08/17 Tacrolimus 1 mg PO BID 10/08/17 Additional Instructions: increase fluids and eat regular meals, f/u with pcp for repeat lab work on Wednesday. Return if symptoms return
[2017-12-22 12:08] VITALS: TEMP 98.2
[2017-12-22] MEDS ORDERED: SODIUM CHLORIDE 0.9% 500ML 500 ML IVS ONE (13:29)
[2017-12-22] MEDS ORDERED: INSULIN, REG.(HUMAN) 100 U/ML VIAL ONE (14:20)
[2017-12-22] MEDS ORDERED: INSULIN, REG.(HUMAN) 100 U/ML VIAL SUBCU ONE (14:28)
[2017-12-22 14:43] VITALS: BP 154/108; O2SAT 95
== END 2017-12-22 14:52 | disposition home or self-care (01) ==
LOC: ER 11:57
DX: E11.649 Type 2 diabetes mellitus with hypoglycemia without coma (principal); T38.3X5A Adverse effect of insulin and oral hypoglycemic [antidiabetic] drugs, initial encounter; E86.0 Dehydration; R80.9 Proteinuria, unspecified; R94.4 Abnormal results of kidney function studies; R81 Glycosuria; I10 Essential (primary) hypertension; Z79.4 Long term (current) use of insulin; Z94.0 Kidney transplant status; Z79.82 Long term (current) use of aspirin; Z79.899 Other long term (current) drug therapy
CPT/HCPCS: 36415; 36416; 80053; 81001; 82550; 82553; 82948; 84484; 85025; J7040

== ENCOUNTER 2017-12-25 09:57 | Emergency (ER) | payer OTHER, MEDICAID ==
[2017-12-25 10:07] VITALS: TEMP 98.2
--- NOTE | 2017-12-25 10:25 | ED.PDOC ---
History of Present Illness - General Chief Complaint: Neuro Symptoms/Deficits Stated Complaint: decreased LOC Time Seen by Provider: 12/25/17 10:14 Source: patient, family Exam Limitations: clinical condition - History of Present Illness Initial Comments: Family noted a snoring sound and when they came to see the patient he seemed confused. THE AMBULANCE WAS CALLED. BBG WAS 70. IT SEEMS THAT THE PATIENT SLOWLY IS BECOMING MORE ALERT. THE PATIENT SAYS THAT HE HAS HAD SEIZURES IN THE PAST AND HIS LAST SEIZURE WAS IN 1994. HE THEN WAS ON DILANTIN. Timing/Duration: 1/2 hour Severity: moderate Improving Factors: rest Associated Symptoms: confusion Allergies/Adverse Reactions: Allergies NO KNOWN ALLERGY Allergy (Verified 06/15/16 10:16) Home Medications: Ambulatory Orders Atorvastatin Calcium [Lipitor] 10 mg PO DAILY@0702/26/16 Cholecalciferol [Vitamin D3] 50,000 unit PO WKLY 02/26/16 Pancrelipase (Lipase-Protease- [Creon] 2 cap PO TID 02/26/16 Prednisone 7.5 mg PO DAILY@0702/26/16 Verapamil HCl [Verelan] 240 mg PO DAILY@69902/26/16 tiZANidine [Zanaflex] 4 mg PO TID 02/26/16 Aspirin [Aspirin EC] 81 mg PO DAILY@0706/15/16 Insulin Detemir [Levemir] 25 unit SUBCU QPM 06/15/16 Insulin Aspart [Novolog Flexpen] 12 unit SC TID 06/16/17 Albuterol Inhaler [Ventolin Hfa Inhaler] 2 puff INH PRN 12/25/17 Allopurinol [Zyloprim] 100 mg PO DAILY 12/25/17 Gabapentin 300 mg PO TID 12/25/17 Lisinopril 2.5 mg PO DAILY 12/25/17 Metoprolol Succinate [Toprol XL] 25 mg PO DAILY 12/25/17 Mycophenolate Sodium [Myfortic] 360 mg PO BID 12/25/17 Omeprazole 20 mg PO DAILY 12/25/17 Sodium Bicarbonate (Antacid) [Sodium Bicarbonate] 1,300 mg PO BID 12/25/17 Tacrolimus 1 mg PO BID 12/25/17 Review of Systems - Review of Systems Constitutional: States: no symptoms reported EENTM: States: mouth pain Respiratory: States: no symptoms reported Cardiology: States: no symptoms reported Gastrointestinal/Abdominal: States: no symptoms reported Genitourinary: States: no symptoms reported Musculoskeletal: States: no symptoms reported Skin: States: no symptoms reported Neurological: States: weakness Endocrine: States: no symptoms reported Hematologic/Lymphatic: States: no symptoms reported Past Medical History (General) - Patient Medical History Hx Seizures: No Hx Stroke: No Hx Dementia: No Hx Asthma: No Hx of COPD: No Hx Cardiac Disorders: No Hx Congestive Heart Failure: No Hx Pacemaker: No Hx Hypertension: Yes Hx Thyroid Disease: No Hx Diabetes: Yes Hx Gastroesophageal Reflux: No Hx Renal Disease: Yes - kidney transplant in 1994 for hx ESRD Hx Cancer: Yes Hx of HIV: No Hx Hepatitis C: No Hx MRSA: No - Vaccination History Hx Tetanus, Diphtheria Vaccination: No Hx Influenza Vaccination: Yes Hx Pneumococcal Vaccination: Yes - Social History Hx Tobacco Use: Yes Hx Chewing Tobacco Use: No Hx Alcohol Use: No Hx Substance Use: No Hx Substance Use Treatment: No Hx Depression: No - Female History Patient : No Family Medical History - Family History Father Family History: Unknown Living Status: Unknown Hx Family Hypertension: Yes Hx Cardiac Disease: Yes Hx Family;Other: neurofibromatosis mom/sister Physical Exam - Physical Exam General Appearance: Alert, Other - STILL SOMEWHAT CONFUSED ENT Exam: other - ON THE LEFT SIDE OF THE TONGUE HE HAS A BITE. 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 HE TAKES ANTIREJECTION MEDS FOR A KIDNEY TRANSPLANTATION. HE HASN'T HAD A SEIZURE IN YEARS. GIVEN HIS COMPLICATED MEDICAL PROBLEMS. NO ANTIEPILEPTIC MEDS WILL BE GIVEN. I SUGGEST HE FOLLOW WITH HIS PCP AND RETURN TO THE ED IF HE HAS ANOTHER SEIZURE. - Results/Orders Results/Orders: CT OF THE BRAIN IS NEGATIVE FOR ACUTE INJURY. THE CXR IS NEGATIVE ON PRELIMINARY REPORT. LABORATORY REPORT HAS A SLIGHT ELEVATION ON THE CREATININE. Departure - Departure Clinical Impression: Seizure Time of Disposition: 12:47 Disposition: Discharge to Home or Self Care Condition: Good Departure Forms: ED Discharge - Pt. Copy, Patient Portal Self Enrollment Instructions: Epilepsy in Adults Referrals: Manohar Daigle MD [Primary Care Provider] - 1-2 Weeks Home Medications: Ambulatory Orders Atorvastatin Calcium [Lipitor] 10 mg PO DAILY@0700 02/26/16 Cholecalciferol [Vitamin D3] 50,000 unit PO WKLY 02/26/16 Pancrelipase (Lipase-Protease- [Creon] 2 cap PO TID 02/26/16 Prednisone 7.5 mg PO DAILY@0700 02/26/16 Verapamil HCl [Verelan] 240 mg PO DAILY@0702/26/16 tiZANidine [Zanaflex] 4 mg PO TID 02/26/16 Aspirin [Aspirin EC] 81 mg PO DAILY@0700 06/15/16 Insulin Detemir [Levemir] 25 unit SUBCU QPM 06/15/16 Insulin Aspart [Novolog Flexpen] 12 unit SC TID 06/16/17 Albuterol Inhaler [Ventolin Hfa Inhaler] 2 puff INH PRN 12/25/17 Allopurinol [Zyloprim] 100 mg PO DAILY 12/25/17 Gabapentin 300 mg PO TID 12/25/17 Lisinopril 2.5 mg PO DAILY 12/25/17 Metoprolol Succinate [Toprol XL] 25 mg PO DAILY 12/25/17 Mycophenolate Sodium [Myfortic] 360 mg PO BID 12/25/17 Omeprazole 20 mg PO DAILY 12/25/17 Sodium Bicarbonate (Antacid) [Sodium Bicarbonate] 1,300 mg PO BID 12/25/17 Tacrolimus 1 mg PO BID 12/25/17
--- NOTE | 2017-12-25 11:23 | CT ---
Procedure: XR CHEST 1 VIEW, CT HEAD WITHOUT IV CONTRAST Exam Date: 12/25/2017 10:18 AM CDT Ordering Provider: Levy Arenas Clinical Indication: Altered mental status Comparison: None Technique: CT images of the head were obtained without contrast administration. Coronal and sagittal reformats were obtained. This exam was performed according to our departmental dose-optimization program which includes automated exposure control, adjustment of the mA and/or kV according to patient size and/or use of iterative reconstruction technique. Findings: There is no acute cortical infarction, hemorrhage, midline shift, mass effect, or hydrocephalus. Small amount of air is seen within the bilateral cavernous sinuses as well as the superior sagittal sinus and the straight sinus. The calvaria and skull base are unremarkable. Paranasal sinuses and mastoid air cells are well aerated. Impression: No acute cortical infarction or hemorrhage. Small amount of air in the major intracranial dural venous sinuses. This could be iatrogenic. Electronically signed by: To Meehan MD 12/25/2017 11:22 AM CDT
[2017-12-25 13:18] VITALS: BP 167/99; O2SAT 94
== END 2017-12-25 13:00 | disposition home or self-care (01) ==
LOC: ER 09:57
DX: R56.9 Unspecified convulsions (principal); I10 Essential (primary) hypertension; E11.9 Type 2 diabetes mellitus without complications; Z94.0 Kidney transplant status; Z79.4 Long term (current) use of insulin; Z79.899 Other long term (current) drug therapy

== ENCOUNTER → 2018-01-12 | Outpatient (CLI) | payer OTHER, MEDICAID | LOC: GMAM 16:45 | PROVIDERS: ATTEND Family Medicine | DX: R56.9 Unspecified convulsions (principal) ==

== ENCOUNTER 2018-01-15 15:06 | Emergency (ER) | payer OTHER, MEDICAID ==
--- NOTE | 2018-01-15 15:42 | ED.PDOC ---
History of Present Illness - General Chief Complaint: Respiratory Problem Stated Complaint: SOB, low O2 sat Time Seen by Provider: 01/15/18 15:38 Source: patient Exam Limitations: no limitations - History of Present Illness Initial Comments: SHORTNESS OF BREATH. THE EMS BRINGS THIS PATIENT THAT EVIDENTLY WAS SATURATING ABOUT 75% AT ROOM AIR. HE WAS GIVEN A ZOPENEX TREATMENT AND PLACED IN A NON REBREATHER AND TRANSPORTED TO THE ED. HE IS THE RECIPIENT OF A KIDNEY ON IMMUNOSUPRESSIVE THERAPY. HE HAS NEUROFIBROMATOSIS. DENIES ANY FEVER. Allergies/Adverse Reactions: Allergies NO KNOWN ALLERGY Allergy (Verified 06/15/16 10:16) Home Medications: Ambulatory Orders Atorvastatin Calcium [Lipitor] 10 mg PO DAILY@0702/26/16 Cholecalciferol [Vitamin D3] 50,000 unit PO WKLY 02/26/16 Pancrelipase (Lipase-Protease- [Creon] 2 cap PO TID 02/26/16 Prednisone 7.5 mg PO DAILY@0702/26/16 Verapamil HCl [Verelan] 240 mg PO DAILY@69902/26/16 tiZANidine [Zanaflex] 4 mg PO TID 02/26/16 Aspirin [Aspirin EC] 81 mg PO DAILY@0706/15/16 Insulin Detemir [Levemir] 25 unit SUBCU QPM 06/15/16 Insulin Aspart [Novolog Flexpen] 12 unit SC TID 06/16/17 Albuterol Inhaler [Ventolin Hfa Inhaler] 2 puff INH PRN 12/25/17 Allopurinol [Zyloprim] 100 mg PO DAILY 12/25/17 Gabapentin 300 mg PO TID 12/25/17 Lisinopril 2.5 mg PO DAILY 12/25/17 Metoprolol Succinate [Toprol XL] 25 mg PO DAILY 12/25/17 Mycophenolate Sodium [Myfortic] 360 mg PO BID 12/25/17 Omeprazole 20 mg PO DAILY 12/25/17 Sodium Bicarbonate (Antacid) [Sodium Bicarbonate] 1,300 mg PO BID 12/25/17 Tacrolimus 1 mg PO BID 12/25/17 Review of Systems - Review of Systems Constitutional: States: weakness EENTM: States: no symptoms reported Respiratory: States: cough, orthopnea, short of breath, wheezing Cardiology: States: edema Gastrointestinal/Abdominal: States: no symptoms reported Genitourinary: States: no symptoms reported Musculoskeletal: States: no symptoms reported Skin: States: no symptoms reported Neurological: States: no symptoms reported Endocrine: States: no symptoms reported Hematologic/Lymphatic: States: no symptoms reported Past Medical History (General) - Patient Medical History Hx Seizures: No Hx Stroke: No Hx Dementia: No Hx Asthma: No Hx of COPD: No Hx Cardiac Disorders: Yes - hypercholesterolemia Hx Congestive Heart Failure: Yes Hx Pacemaker: No Hx Hypertension: Yes Hx Thyroid Disease: No Hx Diabetes: Yes Hx Gastroesophageal Reflux: Yes - Crohn's Hx Renal Disease: Yes - kidney transplant in 1994 for hx ESRD Hx Cancer: Yes Hx of HIV: No Hx Hepatitis C: No Hx MRSA: No - Vaccination History Hx Tetanus, Diphtheria Vaccination: No Hx Influenza Vaccination: Yes Hx Pneumococcal Vaccination: Yes - Social History Hx Tobacco Use: Yes Hx Chewing Tobacco Use: No Hx Alcohol Use: No Hx Substance Use: No Hx Substance Use Treatment: No Hx Depression: No - Female History Patient : No Family Medical History - Family History Father Family History: Unknown Living Status: Unknown Hx Family Hypertension: Yes Hx Cardiac Disease: Yes Hx Family;Other: neurofibromatosis mom/sister Physical Exam - Physical Exam General Appearance: Anxious, Well Developed, Well Groomed, Well Hydrated, Well Nourished Eyes, Ears, Nose, Throat Exam: PERRL/EOMI, pharynx normal Neck: full range of motion, supple, normal inspection Respiratory: crackles, rales Cardiovascular/Chest: normal peripheral pulses, no edema, no gallop Peripheral Pulses: radial,right: 2+, radial,left: 2+ Gastrointestinal/Abdominal: normal bowel sounds, non tender, soft, no organomegaly, no pulsatile mass Rectal Exam: deferred Extremity: normal range of motion, pedal edema, swelling Neurologic: alert, normal mood/affect, other - SOMNOLENT Skin Exam: normal color Lymphatic: no adenopathy Progress - Results/Orders Results/Orders: CXR WITH CONGESTIVE HEART FAILURE, WILL GIVE LASIX. I HAVE DISCUSSED THE CASE WITH DR. GLORIA (FOR DR. BILLINGSLEY)) WILL TRANSFER THE PATIENT TO THE [facility]. HE ACCEPTS THE PATIENT. Departure - Departure Clinical Impression: Kidney transplant recipient Congestive heart failure Qualifiers: Congestive heart failure type: diastolic Congestive heart failure chronicity: acute on chronic Qualified Code(s): I50.33 - Acute on chronic diastolic ( congestive) heart failure [id number] kidney injury Qualifiers: Acute renal failure type: unspecified Chronic kidney disease stage: stage 2 ( mild) Qualified Code(s): N17.9 - Acute kidney failure, unspecified; N18.2 - Chronic kidney disease, stage 2 (mild) Disposition: Transfer to Hospital Condition: Good Home Medications: Ambulatory Orders Atorvastatin Calcium [Lipitor] 10 mg PO DAILY@0702/26/16 Cholecalciferol [Vitamin D3] 50,000 unit PO WKLY 02/26/16 Pancrelipase (Lipase-Protease- [Creon] 2 cap PO TID 02/26/16 Prednisone 7.5 mg PO DAILY@69902/26/16 Verapamil HCl [Verelan] 240 mg PO DAILY@69902/26/16 tiZANidine [Zanaflex] 4 mg PO TID 02/26/16 Aspirin [Aspirin EC] 81 mg PO DAILY@0706/15/16 Insulin Detemir [Levemir] 25 unit SUBCU QPM 06/15/16 Insulin Aspart [Novolog Flexpen] 12 unit SC TID 06/16/17 Albuterol Inhaler [Ventolin Hfa Inhaler] 2 puff INH PRN 12/25/17 Allopurinol [Zyloprim] 100 mg PO DAILY 12/25/17 Gabapentin 300 mg PO TID 12/25/17 Lisinopril 2.5 mg PO DAILY 12/25/17 Metoprolol Succinate [Toprol XL] 25 mg PO DAILY 12/25/17 Mycophenolate Sodium [Myfortic] 360 mg PO BID 12/25/17 Omeprazole 20 mg PO DAILY 12/25/17 Sodium Bicarbonate (Antacid) [Sodium Bicarbonate] 1,300 mg PO BID 12/25/17 Tacrolimus 1 mg PO BID 12/25/17 Transfer to Outside Facility - Transfer Information Accepting Provider:: DR. GLORIA [facility] MIRANDA [facility] [place] Accepting Facility: [place] Reason for Transfer: required specialist not available - CONGESTIVE HEART FAILURE, S/P KIDNEY TRANSPLANT, ACUTE ON CHRONIC KIDNEY INJURY
--- NOTE | 2018-01-15 16:12 | RAD ---
EXAM DESCRIPTION: Chest,1 View CLINICAL HISTORY: 52 years Male, episodic cough, chest discomfort COMPARISON: December 25, 2017. FINDINGS: Heart size appears slightly prominent, accentuated by technique but probably not grossly changed compared to the previous study. There is slight uncoiling of the thoracic aorta. There has been interval development of bilateral perihilar pulmonary vascular congestive change and edema, with possible superimposed consolidation in the lung bases, especially on the right. No gross pneumothorax identified on this portable upright film. Small pleural effusions are not excluded. IMPRESSION: Findings consistent with pulmonary vascular congestive changes and superimposed infiltrates. Follow-up suggested. Electronically signed by: Luis Almanza MD 01/15/2018 4:11 PM CDT
[2018-01-15] MEDS ORDERED: FUROSEMIDE INJ 40 MG/4 ML VIAL IV ONE (16:36)
[2018-01-17 17:46] VITALS: BP 156/101; TEMP 98.7; O2SAT 94
== END 2018-01-15 19:58 | disposition short-term general hospital (02) ==
LOC: ER 15:06
DX: E11.22 Type 2 diabetes mellitus with diabetic chronic kidney disease (principal); I13.0 Hypertensive heart and chronic kidney disease with heart failure and stage 1 through stage 4 chronic kidney disease, or unspecified chronic kidney disease; N18.2 Chronic kidney disease, stage 2 (mild); I50.43 Acute on chronic combined systolic (congestive) and diastolic (congestive) heart failure; N17.9 Acute kidney failure, unspecified; Z94.0 Kidney transplant status; Z87.891 Personal history of nicotine dependence; E78.00 Pure hypercholesterolemia, unspecified; Z79.4 Long term (current) use of insulin; Q85.00 Neurofibromatosis, unspecified; Z79.82 Long term (current) use of aspirin
CPT/HCPCS: 36415; 36600; 71045; 80048; 82550; 82553; 82803; 82805; 84484; 85025; 85610; 85730; 87040; 93005; J1940

== ENCOUNTER → 2018-04-19 | Outpatient (CLI) | payer MEDICARE, MEDICAID | LOC: GMAM 13:22 | PROVIDERS: ATTEND Family Medicine | DX: E55.9 Vitamin D deficiency, unspecified (principal); M10.9 Gout, unspecified ==

== ENCOUNTER → 2018-04-27 | Outpatient (CLI) | payer MEDICARE, MEDICAID ==
--- NOTE | 2018-04-27 14:17 | US ---
US THYROID CLINICAL STATEMENT: THYROID NODULE. . No palpable mass. No prior thyroid surgery. No thyroid therapy. COMPARISON: None. FINDINGS: Size right thyroid lobe: 5.4 x 2.2 x 1.8 cm Size left thyroid lobe: 4.9 x 1.7 x 1.6 cm Size isthmus: 0.31 cm Estimated total number of nodules greater than or equal to 1 cm: 0 Nodule 1: Size: 1.9 x 1.1 x 1.1. cm Location: Right Lower Composition: cystic or completely cystic: 0 points. Minimal vascularity of the rim. Echogenicity: anechoic: 0 points Shape: wider than tall: 0 points Margins: smooth: 0 points Echogenic foci: large comet tail artefact: 0 points ACR Total Points: 0; ACR TI-RADS risk category: TR1 - benign nodule Nodule 2: Size: 0.9 x 0.8 x 0.4 cm. Nonvascular. Location: Left Lower Composition: solid or almost completely solid: 2 points Echogenicity: hypoechoic: 2 points Shape: wider than tall: 0 points Margins: smooth: 0 points Echogenic foci: none: 0 points ACR Total Points: 4; ACR TI-RADS risk category: TR4 - moderately suspicious nodule. Nodule 3: Size: 0.3 x 0.3 x 0.2 cm. Nonvascular. Location: Left Upper Composition: solid or almost completely solid: 2 points Echogenicity: very hypoechoic: 3 points Shape: wider than tall: 0 points Margins: ill-defined: 0 points Echogenic foci: none: 0 points ACR Total Points: 5; ACR TI-RADS risk category: TR4 - moderately suspicious nodule. The soft tissues adjacent to the thyroid gland show no evidence of distinct solid mass or cyst. No large calcifications or parenchymal edema. No abnormal vascularity. IMPRESSION: 1. Nodule 1: ACR TI-RADS 2017 Category 1. Recommend: No further follow-up. . Please see ACR TI-RADS 2017 recommendations below.* 2. Nodule 2: ACR TI-RADS 2017 Category 4. Recommend: No further follow-up. 3. Nodule 3: ACR TI-RADS 2017 Category 4. Recommend: No further follow-up. 4. The soft tissues around the thyroid gland are unremarkable. *ACR TI-RADS 2017 Recommendations: TR1: No FNA or follow up TR2: No FNA or follow up TR3: FNA if >/= 2.5 cm, follow up if 1.5 - 2.4 cm in 1, 3, and 5 years TR4: FNA if >/= 1.5 cm, follow up if 1.0 - 1.4 cm in 1, 2, 3, and 5 years TR5: FNA if >/= 1.0 cm, follow up if 0.5 - 0.9 cm every year for 5 years ACR TI-RADS recommends that no more than two nodules with the highest ACR TI-RADS total point should be biopsied and no more than four nodules should be followed. Electronically signed by: Matthew Rosado MD 04/27/2018 2:15 PM CDT
== END ==
LOC: US 10:00
PROVIDERS: ATTEND Family Medicine
DX: E04.1 Nontoxic single thyroid nodule (principal)

== ENCOUNTER 2018-05-08 15:41 | Emergency (ER) | payer OTHER, MEDICAID ==
--- NOTE | 2018-05-08 16:09 | ED.PDOC ---
History of Present Illness - General Chief Complaint: Abdominal Pain Stated Complaint: R abdominal discomfort Time Seen by Provider: 05/08/18 15:52 Information Source: patient Exam Limitations: no limitations - History of Present Illness Initial Comments: Celestino Bolivar 52 y/o male stated that right side of his abdomen had been achy non radiating the last 2 days getting more constant.No nausea/vomiting ,no hematuria,had bm today,no constipation.Has history of familial neurofibromatosis ,s/p kidney transplant and splenectomy. Abdominal Pain Onset Location: other - righ side abdomen Pain Radiation: no radiation Quality: aching, steady Timing/Duration: days - 2 Improving Factors: nothing Worsening Factors: nothing Associated Symptoms: other - see hpi Review of Systems - Review of Systems Constitutional: States: no symptoms reported EENTM: States: no symptoms reported Respiratory: States: no symptoms reported Cardiology: States: no symptoms reported Gastrointestinal/Abdominal: States: see HPI Genitourinary: States: no symptoms reported Skin: States: no symptoms reported Neurological: States: no symptoms reported Past Medical History (General) - Patient Medical History Hx Seizures: No Hx Stroke: No Hx Dementia: No Hx Asthma: No Hx of COPD: No Hx Cardiac Disorders: Yes - hypercholesterolemia Hx Congestive Heart Failure: Yes Hx Pacemaker: No Hx Hypertension: Yes Hx Thyroid Disease: No Hx Diabetes: Yes Hx Gastroesophageal Reflux: Yes - Crohn's Hx Renal Disease: Yes - kidney transplant in 1994 for hx ESRD Hx Cancer: Yes Hx of HIV: No Hx Hepatitis C: No Hx MRSA: No Hx Other PMH: Yes - neurofibromatosis Surgical History: cholecystectomy, other - kidney transplant,splenectomy - Vaccination History Hx Tetanus, Diphtheria Vaccination: No Hx Influenza Vaccination: Yes Hx Pneumococcal Vaccination: Yes - Social History Hx Tobacco Use: No Hx Chewing Tobacco Use: No Hx Alcohol Use: No Hx Substance Use: No Hx Substance Use Treatment: No Hx Depression: No - Female History Patient : No Family Medical History - Family History Father Family History: Unknown Living Status: Unknown Hx Family Hypertension: Yes Hx Cardiac Disease: Yes Hx Family;Other: neurofibromatosis mom/sister Physical Exam - Physical Exam General Appearance: Alert, Comfortable, No apparent distress Eyes, Ears, Nose, Throat Exam: normal ENT inspection, pharynx normal Neck: non-tender, full range of motion, supple, normal inspection Respiratory: chest non-tender, lungs clear, normal breath sounds Cardiovascular/Chest: normal peripheral pulses, regular rate, rhythm, no murmur Peripheral Pulses: No deficit Gastrointestinal/Abdominal: normal bowel sounds, soft, tenderness - right side abdomen + rebound Back Exam: no CVA tenderness, no vertebral tenderness Extremity: non-tender, no pedal edema, no calf tenderness Neurologic: alert, oriented x 3 Skin Exam: normal color, warm/dry, other - multiple fibromatosis face ,forehead ,nose Progress - Progress Progress: 05/08/18 16:13 Vital Signs - 24 hr 05/08/18 15:43 Temperature 99.1 F Pulse Rate [ 98 H Left Radial] Respiratory 22 Rate Blood Pressure 131/91 [Right Arm] O2 Sat by Pulse 97 Oximetry - Results/Orders Results/Orders: 05/08/18 17:27 Piperacillin/Tazobactam [Zosyn] 3.375 gm Sodium Chloride 0.9% 100Ml [NS (NACL 0.9%) 100ml] 100 ml IVPB ONCE Laboratory Results - last 24 hr 05/08/18 05/08/18 05/08/18 16:15 16:15 16:35 WBC 20.6 H* RBC 3.96 L Hgb 11.4 L Hct 36.4 L MCV 91.9 MCH 28.7 MCHC 31.3 L RDW 15.2 H Plt Count 228 MPV 12.9 H Absolute Neuts (auto) 17.70 H Absolute Lymphs (auto) 0.80 L Absolute Monos (auto) 2.00 H Absolute Eos (auto) 0.10 Absolute Basos (auto) 0.10 Neutrophils % 85.7 H Neutrophils % (Manual) 77.0 Lymphocytes % 4.1 L Lymphocytes % (Manual) 14.0 Monocytes % 9.5 H Monocytes % (Manual) 2.0 Eosinophils % 0.3 L Basophils % 0.4 Band Neutrophils 6.0 H Eosinophils 1.0 Basophils 0.0 Platelet Estimate Normal PT 9.4 INR 0.94 PTT (SP) 27.9 Sodium 134 L Potassium 5.4 H Chloride 105 Carbon Dioxide 20 L Anion Gap 14.4 BUN 45 H Creatinine 2.65 H BUN/Creatinine Ratio 17.0 Random Glucose 224 H Serum Osmolality 286.8 Lactic Acid Calcium 9.0 Magnesium 1.7 L Total Bilirubin 0.5 Direct Bilirubin 0.1 Indirect Bilirubin 0.4 AST 10 ALT 13 Alkaline Phosphatase 91 Creatine Kinase 55 CK-MB (CK-2) 2.2 CK-MB (CK-2) % Not Reportable Troponin I < 0.02 Serum Total Protein 7.1 Albumin 3.3 Urine Color Yellow Urine Appearance Clear Urine pH 6.0 Ur Specific [place] 1.015 Urine Protein 100 H Urine Glucose (UA) Negative Urine Ketones Negative Urine Blood Negative Urine Nitrite Negative Urine Bilirubin Negative Urine Urobilinogen 0.2 Ur Leukocyte Esterase Negative Urine RBC 0 Urine WBC 0 Ur Epithelial Cells 1-3 Urine Bacteria 0 05/08/18 17:16 WBC RBC Hgb Hct MCV MCH MCHC RDW Plt Count MPV Absolute Neuts (auto) Absolute Lymphs (auto) Absolute Monos (auto) Absolute Eos (auto) Absolute Basos (auto) Neutrophils % Neutrophils % (Manual) Lymphocytes % Lymphocytes % (Manual) Monocytes % Monocytes % (Manual) Eosinophils % Basophils % Band Neutrophils Eosinophils Basophils Platelet Estimate PT INR PTT (SP) Sodium Potassium Chloride Carbon Dioxide Anion Gap BUN Creatinine BUN/Creatinine Ratio Random Glucose Serum Osmolality Lactic Acid 1.0 Calcium Magnesium Total Bilirubin Direct Bilirubin Indirect Bilirubin AST ALT Alkaline Phosphatase Creatine Kinase CK-MB (CK-2) CK-MB (CK-2) % Troponin I Serum Total Protein Albumin Urine Color Urine Appearance Urine pH Ur Specific [place] Urine Protein Urine Glucose (UA) Urine Ketones Urine Blood Urine Nitrite Urine Bilirubin Urine Urobilinogen Ur Leukocyte Esterase Urine RBC Urine WBC Ur Epithelial Cells Urine Bacteria - EKG/XRAY/CT CT Ordered: Yes - abd/p-ruptuered/Appendicitis CT Interpretation Call Back: Yes - as above Departure - Departure Clinical Impression: Acute appendicitis with rupture, S/P kidney transplant Abdominal pain Qualifiers: Abdominal location: lower abdomen, unspecified Qualified Code(s): R10.30 - Lower abdominal pain, unspecified Time of Disposition: 18:12 Disposition: Transfer to Hospital Condition: Fair Departure Forms: Patient Portal Self Enrollment Referrals: Manohar Daigle MD [Primary Care Provider] - 1-2 Weeks Home Medications: Ambulatory Orders Atorvastatin Calcium [Lipitor] 10 mg PO DAILY@69902/26/16 Cholecalciferol [Vitamin D3] 50,000 unit PO WKLY 02/26/16 Pancrelipase (Lipase-Protease- [Creon] 2 cap PO TID 02/26/16 Prednisone 7.5 mg PO DAILY@69902/26/16 Verapamil HCl [Verelan] 240 mg PO DAILY@69902/26/16 tiZANidine [Zanaflex] 4 mg PO TID 02/26/16 Aspirin [Aspirin EC] 81 mg PO DAILY@0700 06/15/16 Insulin Detemir [Levemir] 25 unit SUBCU QPM 06/15/16 Insulin Aspart [Novolog Flexpen] 12 unit SC TID 06/16/17 Albuterol Inhaler [Ventolin Hfa Inhaler] 2 puff INH PRN 12/25/17 Allopurinol [Zyloprim] 100 mg PO DAILY 12/25/17 Gabapentin 300 mg PO TID 12/25/17 Lisinopril 2.5 mg PO DAILY 12/25/17 Metoprolol Succinate [Toprol XL] 25 mg PO DAILY 12/25/17 Mycophenolate Sodium [Myfortic] 360 mg PO BID 12/25/17 Omeprazole 20 mg PO DAILY 12/25/17 Sodium Bicarbonate (Antacid) [Sodium Bicarbonate] 1,300 mg PO BID 12/25/17 Tacrolimus 1 mg PO BID 12/25/17 Transfer to Outside Facility - Transfer Information Accepting Provider:: -[facility] Accepting Facility: [facility] Reason for Transfer: specialized care not available - ammonia box tender /surgeon
[2018-05-08] MEDS ORDERED: SODIUM CHLORIDE 0.9% 500ML 500 ML IVS ONE (16:15)
[2018-05-08] MEDS ORDERED: PROMETHAZINE HCL INJ 25 MG/ML VIAL IM ONE (16:15)
[2018-05-08] MEDS ORDERED: MORPHINE SULFATE INJ 10 MG/ML VIAL IV ONE ×2 (16:15→17:45)
--- NOTE | 2018-05-08 17:10 | RAD ---
EXAM: Chest,1 View CLINICAL HISTORY: pain COMPARISON STUDY: January 15, 2018 TECHNICAL: A single anteroposterior (AP) view of the chest was performed. FINDINGS: No consolidations, effusions, or edema. The heart size is not enlarged. AP portable technique causes magnification with some enlargement of the cardiac silhouette. There is significant improvement in the appearance of the chest. IMPRESSION: NO ACUTE ABNORMALITY. PA AND LATERAL CHEST X-RAYS ARE RECOMMENDED WHEN POSSIBLE. Electronically signed by: Blayne Hdez MD 05/08/2018 5:09 PM [facility]
--- NOTE | 2018-05-08 17:24 | CT ---
EXAM: Abdoment/Pelvis w/o Contrast CLINICAL INDICATION: Abdominal pain. COMPARISON: There is no previous study for comparison. TECHNIQUE: The CT scan was done using contiguous axial 2.5 mm noncontrast sections through the abdomen and pelvis. This exam was performed according to our departmental dose-optimization program, which includes automated exposure control, adjustment of the mA and/or kV according to patient size and/or use of iterative reconstruction technique. FINDINGS: The visualized lung bases contain foci of mild scarring but are otherwise clear. There is a trace pericardial effusion. The gallbladder is surgically absent. A fluid-filled structure at the hepatic hilum may represent a dilated CBD or choledochocele measuring up to 3.1 cm. The pancreas is totally atrophic or absent. The spleen is absent. The adrenal glands are unremarkable. The [place] kidneys are not identified. There is a transplant kidney in the right hemipelvis. The prostate gland is mildly enlarged. The appendix is grossly abnormal, dilated and inflamed measuring up to 13.2 mm in caliber. The tip of the appendix appears ruptured with a few small adjacent free air bubbles, series 2, image 93. No gross pneumoperitoneum or abscess is seen. There is mild thickening and inflammation of the adjacent cecum and terminal ileum, likely reactive in nature. No dilated loops of small bowel are seen. IMPRESSION: 1. Findings consistent with acute appendicitis with rupture. 2. Incidentally noted fluid-filled structure at the hepatic hilum which may represent a dilated CBD or choledochocele, suggests correlation with nonemergent follow-up ultrasound. I telephoned these findings to Dr. Andre at 5:23 PM central time on 05/08/2018. Electronically signed by: Noe Villalobos MD 05/08/2018 5:23 PM [employer]
[2018-05-08] MEDS ORDERED: PIPERACILLIN/TAZOBACTAM 3.375 GM in SODIUM CHLORIDE 0.9% 100ML 100 ML IVPB ONE (17:27)
[2018-05-08] MEDS ORDERED: PIPERACILLIN/TAZOBACTAM 3.375 GM VIAL IVPB ONE (17:33)
[2018-05-08] MEDS ORDERED: SODIUM CHLORIDE 0.9% 100ML 100 ML IVPB ONE (17:34)
[2018-05-08 17:38] VITALS: BP 157/92; TEMP 98.7; O2SAT 99
== END 2018-05-08 18:37 | disposition short-term general hospital (02) ==
LOC: ER 15:41
DX: K35.32 Acute appendicitis with perforation, localized peritonitis, and gangrene, without abscess (principal); Q85.00 Neurofibromatosis, unspecified; E11.9 Type 2 diabetes mellitus without complications; I11.0 Hypertensive heart disease with heart failure; I50.9 Heart failure, unspecified; E78.00 Pure hypercholesterolemia, unspecified; Z94.0 Kidney transplant status; Z90.49 Acquired absence of other specified parts of digestive tract; Z87.19 Personal history of other diseases of the digestive system; Z90.81 Acquired absence of spleen; Z85.9 Personal history of malignant neoplasm, unspecified
CPT/HCPCS: 36415; 71045; 74176; 80048; 80076; 81001; 82550; 82553; 83605; 84484; 85025; 85610; 85730; J2270; J2543; J2550; J7040; J7050

== ENCOUNTER 2018-05-26 14:08 | Emergency (ER) | payer OTHER, MEDICAID ==
[2018-05-26] MEDS ORDERED: SODIUM CHLORIDE 0.9% (FLUSH) 10 ML SYG IV PRN (14:29)
--- NOTE | 2018-05-26 15:39 | ED.PDOC ---
History of Present Illness - General Chief Complaint: Problem Stated Complaint: Urinary hesitancy Time Seen by Provider: 05/26/18 14:29 Source: patient Exam Limitations: no limitations - History of Present Illness Initial Comments: PT PRESENTS TO THE ED WITH COMPLAINT OF URINARY HESITANCY FOR THE PAST 3 DAYS. PT DENIES FEVER, CHILLS, DYSURIA, OR HEMATURIA. Quality: moderate Radiation: none Activites at Onset: none Prior abdominal problems: none - RECENT APPENDECTOMY Sexual intercourse history: not active Improving Factors: nothing Worsening Factors: nothing Associated Symptoms: denies symptoms Allergies/Adverse Reactions: Allergies NO KNOWN ALLERGY Allergy (Verified 06/15/16 10:16) Home Medications: Ambulatory Orders Atorvastatin Calcium [Lipitor] 10 mg PO DAILY@0700 02/26/16 Cholecalciferol [Vitamin D3] 50,000 unit PO WKLY 02/26/16 Pancrelipase (Lipase-Protease- [Creon] 2 cap PO TID 02/26/16 Prednisone 7.5 mg PO DAILY@0700 02/26/16 Verapamil HCl [Verelan] 240 mg PO DAILY@0702/26/16 tiZANidine [Zanaflex] 4 mg PO TID 02/26/16 Aspirin [Aspirin EC] 81 mg PO DAILY@0700 06/15/16 Insulin Detemir [Levemir] 25 unit SUBCU QPM 06/15/16 Insulin Aspart [Novolog Flexpen] 12 unit SC TID 06/16/17 Albuterol Inhaler [Ventolin Hfa Inhaler] 2 puff INH PRN 12/25/17 Allopurinol [Zyloprim] 100 mg PO DAILY 12/25/17 Gabapentin 300 mg PO TID 12/25/17 Lisinopril 2.5 mg PO DAILY 12/25/17 Metoprolol Succinate [Toprol XL] 25 mg PO DAILY 12/25/17 Mycophenolate Sodium [Myfortic] 360 mg PO BID 12/25/17 Omeprazole 20 mg PO DAILY 12/25/17 Sodium Bicarbonate (Antacid) [Sodium Bicarbonate] 1,300 mg PO BID 12/25/17 Tacrolimus 1 mg PO BID 12/25/17 Review of Systems - Review of Systems Constitutional: Denies: chills, fever EENTM: Denies: nose congestion, throat pain Respiratory: Denies: cough, short of breath Cardiology: Denies: chest pain, palpitations Gastrointestinal/Abdominal: Denies: abdominal pain, diarrhea, nausea, vomiting Genitourinary: Denies: dysuria, frequency, hematuria, pain Musculoskeletal: Denies: joint pain, joint swelling Skin: Denies: lesions, rash Neurological: Denies: headache, paresthesia Endocrine: States: no symptoms reported Hematologic/Lymphatic: States: no symptoms reported Past Medical History (General) - Patient Medical History Hx Seizures: No Hx Stroke: No Hx Dementia: No Hx Asthma: No Hx of COPD: No Hx Cardiac Disorders: Yes - hypercholesterolemia Hx Congestive Heart Failure: Yes Hx Pacemaker: No Hx Hypertension: Yes Hx Thyroid Disease: No Hx Diabetes: Yes Hx Gastroesophageal Reflux: Yes - Crohn's Hx Renal Disease: Yes - kidney transplant in 1994 for hx ESRD Hx Cancer: Yes Hx of HIV: No Hx Hepatitis C: No Hx MRSA: No - Vaccination History Hx Tetanus, Diphtheria Vaccination: No Hx Influenza Vaccination: Yes Hx Pneumococcal Vaccination: Yes - Social History Hx Tobacco Use: No Hx Chewing Tobacco Use: No Hx Alcohol Use: No Hx Substance Use: No Hx Substance Use Treatment: No Hx Depression: No - Female History Patient : No Family Medical History - Family History Father Family History: Unknown Living Status: Unknown Hx Family Hypertension: Yes Hx Cardiac Disease: Yes Hx Family;Other: neurofibromatosis mom/sister Physical Exam - Physical Exam General Appearance: Alert, Comfortable, No apparent distress, Well Developed, Well Groomed, Well Hydrated Eyes, Ears, Nose, Throat Exam: normal ENT inspection Neck: normal inspection Cardiovascular/Respiratory: no respiratory distress Gastrointestinal/Abdominal: non tender, soft, other - WELL HEALED RLQ APPENDECTOMY SCAR, STERISTRIPS IN PLACE. 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 PT TO FOLLOW UP WITH UROLOGY AN OUTPATIENT - Results/Orders Results/Orders: Laboratory Tests 05/26/18 05/26/18 05/26/18 14:32 14:32 15:06 WBC 7.8 RBC 3.54 L Hgb 10.3 L Hct 32.5 L MCV 91.9 MCH 29.0 MCHC 31.6 L RDW 15.7 H Plt Count 328 MPV 11.6 H Absolute Neuts (auto) 4.60 Absolute Lymphs (auto) 1.40 Absolute Monos (auto) 1.40 H Absolute Eos (auto) 0.30 Absolute Basos (auto) 0.10 Neutrophils % 59.1 Lymphocytes % 18.0 L Monocytes % 17.4 H Eosinophils % 3.6 Basophils % 1.9 Sodium 135 Potassium 4.8 Chloride 106 Carbon Dioxide 21 Anion Gap 12.8 BUN 36 H Creatinine 1.77 H BUN/Creatinine Ratio 20.3 H Random Glucose 203 H Serum Osmolality 284.2 Calcium 8.7 Urine Color Yellow Urine Appearance Clear Urine pH 5.5 Ur Specific [place] 1.020 Urine Protein 100 H Urine Glucose (UA) Negative Urine Ketones Negative Urine Blood Negative Urine Nitrite Negative Urine Bilirubin Negative Urine Urobilinogen 0.2 Ur Leukocyte Esterase Negative Urine RBC 0 Urine WBC 0 Ur Epithelial Cells 1-3 Urine Bacteria 0 Departure - Departure Clinical Impression: Kidney transplant recipient, Urinary hesitancy Time of Disposition: 15:54 Disposition: Discharge to Home or Self Care Condition: Good Departure Forms: ED Discharge - Pt. Copy, Patient Portal Self Enrollment Instructions: Urinary Retention (DC) Referrals: Manohar Daigle MD [Primary Care Provider] - 1 Week Home Medications: Ambulatory Orders Atorvastatin Calcium [Lipitor] 10 mg PO DAILY@0702/26/16 Cholecalciferol [Vitamin D3] 50,000 unit PO WKLY 02/26/16 Pancrelipase (Lipase-Protease- [Creon] 2 cap PO TID 02/26/16 Prednisone 7.5 mg PO DAILY@69902/26/16 Verapamil HCl [Verelan] 240 mg PO DAILY@69902/26/16 tiZANidine [Zanaflex] 4 mg PO TID 02/26/16 Aspirin [Aspirin EC] 81 mg PO DAILY@0706/15/16 Insulin Detemir [Levemir] 25 unit SUBCU QPM 06/15/16 Insulin Aspart [Novolog Flexpen] 12 unit SC TID 06/16/17 Albuterol Inhaler [Ventolin Hfa Inhaler] 2 puff INH PRN 12/25/17 Allopurinol [Zyloprim] 100 mg PO DAILY 12/25/17 Gabapentin 300 mg PO TID 12/25/17 Lisinopril 2.5 mg PO DAILY 12/25/17 Metoprolol Succinate [Toprol XL] 25 mg PO DAILY 12/25/17 Mycophenolate Sodium [Myfortic] 360 mg PO BID 12/25/17 Omeprazole 20 mg PO DAILY 12/25/17 Sodium Bicarbonate (Antacid) [Sodium Bicarbonate] 1,300 mg PO BID 12/25/17 Tacrolimus 1 mg PO BID 12/25/17
[2018-05-26 16:11] VITALS: BP 135/83; TEMP 98.7; O2SAT 97
== END 2018-05-26 16:35 | disposition home or self-care (01) ==
LOC: ER 14:08
DX: R39.11 Hesitancy of micturition (principal); E78.00 Pure hypercholesterolemia, unspecified; I11.0 Hypertensive heart disease with heart failure; I50.9 Heart failure, unspecified; E11.9 Type 2 diabetes mellitus without complications; Z94.0 Kidney transplant status; Z79.4 Long term (current) use of insulin; Z79.899 Other long term (current) drug therapy; Z90.49 Acquired absence of other specified parts of digestive tract

== ENCOUNTER 2018-07-09 13:58 | Emergency (ER) | payer OTHER, MEDICAID ==
[2018-07-09] MEDS ORDERED: MORPHINE SULFATE INJ 10 MG/ML VIAL IV ONE ×2 (14:06→16:26)
--- NOTE | 2018-07-09 14:09 | ED.PDOC ---
History of Present Illness - General Chief Complaint: Abdominal Pain Stated Complaint: lower abdominal pain Time Seen by Provider: 07/09/18 14:06 Information Source: patient, EMS Exam Limitations: no limitations - History of Present Illness Initial Comments: patient comes in with onset of severe, 7 out of 10, sharp, stabbing abdominal pain inferior to the umbilicus at the midline. Patient states it felt a little bit like when he had a hernia in the past but that was several years ago and has since been repaired. Patient was feeling fine prior to this and had a normal bowel movement this morning. He's had no diarrhea, no melena, no black or tarry stools, no bright red blood per rectum. He denies nausea or emesis. He's never had kidney stones and denies any dysuria or hematuria. Patient has had no fever, chills, cough or cold symptoms. Patient has a significant past medical history for neurofibromatosis, type 1 diabetes mellitus, epilepsy, chronic kidney disease with history of dialysis prior to kidney transplant. Past medical history is also significant for appendectomy, removal of his disease kidneys, kidney transplant recipient, hernia repair. He has had his spleen, pancrease, gallbladder also removed. Abdominal Pain Onset Location: suprapubic Pain Radiation: no radiation Quality: severe, sharpness Timing/Duration: 4-6 hours, getting worse Improving Factors: nothing Worsening Factors: nothing Associated Symptoms: denies symptoms Review of Systems - Review of Systems Constitutional: States: no symptoms reported. Denies: chills, fever, weakness EENTM: States: no symptoms reported. Denies: eye pain, ear pain, nose pain Respiratory: States: no symptoms reported. Denies: cough, short of breath Cardiology: States: no symptoms reported. Denies: chest pain, palpitations Gastrointestinal/Abdominal: States: see HPI, abdominal pain. Denies: constipation, diarrhea, nausea, vomiting Genitourinary: States: no symptoms reported Musculoskeletal: States: no symptoms reported Skin: States: no symptoms reported Past Medical History (General) - Patient Medical History Hx Seizures: No Hx Stroke: No Hx Dementia: No Hx Asthma: No Hx of COPD: No Hx Cardiac Disorders: Yes - hypercholesterolemia Hx Congestive Heart Failure: Yes Hx Pacemaker: No Hx Hypertension: Yes Hx Thyroid Disease: No Hx Diabetes: Yes Hx Gastroesophageal Reflux: Yes - Crohn's Hx Renal Disease: Yes - kidney transplant in 1994 for hx ESRD Hx Cancer: Yes Hx of HIV: No Hx Hepatitis C: No Hx MRSA: No - Vaccination History Hx Tetanus, Diphtheria Vaccination: No Hx Influenza Vaccination: Yes Hx Pneumococcal Vaccination: Yes - Social History Hx Tobacco Use: No Hx Chewing Tobacco Use: No Hx Alcohol Use: No Hx Substance Use: No Hx Substance Use Treatment: No Hx Depression: No - Female History Patient : No Family Medical History - Family History Father Family History: Unknown Living Status: Unknown Hx Family Hypertension: Yes Hx Cardiac Disease: Yes Hx Family;Other: neurofibromatosis mom/sister Physical Exam - Physical Exam General Appearance: Alert, Anxious, Comfortable Eyes, Ears, Nose, Throat Exam: PERRL/EOMI, normal ENT inspection, TMs normal, other - diffuse neurofibromas Neck: non-tender, full range of motion, supple, normal inspection Respiratory: chest non-tender, lungs clear, normal breath sounds, no respiratory distress Cardiovascular/Chest: normal peripheral pulses, regular rate, rhythm, no edema, no murmur Gastrointestinal/Abdominal: normal bowel sounds, soft, tenderness - TTP suprapubically with no hernia, rebound, or guarding, moderate distention Neurologic: alert, oriented x 3 Progress - Progress Progress: 07/09/18 16:21 patient feeling better after morphine. Explained results and will transfer to [facility] as that is the place he received his transplant. - Results/Orders Results/Orders: Laboratory Results WBC 11.1 K/mm3 (4.8-10.8) H 07/09/18 14:25 RBC 3.96 M/mm3 (4.70-6.10) L 07/09/18 14:25 Hgb 11.5 gm/dL (14.0-18.0) L 07/09/18 14:25 Hct 36.0 % (42.0-52.0) L 07/09/18 14:25 MCV 91.0 fl (80.0-94.0) 07/09/18 14:25 MCH 29.0 pg (27.0-31.0) 07/09/18 14:25 MCHC 31.8 g/dL (33.0-37.0) L 07/09/18 14:25 RDW 15.2 % (11.5-14.5) H 07/09/18 14:25 Plt Count 223 K/mm3 (130-400) 07/09/18 14:25 MPV 11.8 fl (7.40-10.4) H 07/09/18 14:25 Absolute Neuts (auto) 9.00 K/uL (1.8-6.8) H 07/09/18 14:25 Absolute Lymphs (auto) 1.00 K/uL (1.0-3.4) 07/09/18 14:25 Absolute Monos (auto) 1.00 K/uL (0.2-0.8) H 07/09/18 14:25 Absolute Eos (auto) 0.00 K/uL (0.0-0.4) 07/09/18 14:25 Absolute Basos (auto) 0.10 K/uL (0.0-0.1) 07/09/18 14:25 Neutrophils % 80.9 % (42.0-78.0) H 07/09/18 14:25 Lymphocytes % 9.4 % (20.0-50.0) L 07/09/18 14:25 Monocytes % 8.6 % (2.0-9.0) 07/09/18 14:25 Eosinophils % 0.4 % (1.0-5.0) L 07/09/18 14:25 Basophils % 0.7 % (0.0-2.0) 07/09/18 14:25 Sodium 133 mmol/L (135-145) L 07/09/18 14:25 Potassium 4.2 mmol/L (3.6-5.0) 07/09/18 14:25 Chloride 107 mmol/L (101-111) 07/09/18 14:25 Carbon Dioxide 19 mmol/L (21-31) L 07/09/18 14:25 Anion Gap 11.2 (12-18) L 07/09/18 14:25 BUN 32 mg/dL (7-18) H 07/09/18 14:25 Creatinine 1.53 mg/dL (0.6-1.3) H 07/09/18 14:25 BUN/Creatinine Ratio 20.9 (10-20) H 07/09/18 14:25 Random Glucose 173 mg/dL (70-105) H 07/09/18 14:25 Serum Osmolality 277.4 mOsm/L (275-295) 07/09/18 14:25 Calcium 8.6 mg/dL (8.4-10.2) 07/09/18 14:25 Total Bilirubin 0.4 mg/dL (0.2-1.0) 07/09/18 14:25 AST 34 IU/L (10-42) 07/09/18 14:25 ALT 44 IU/L (10-60) 07/09/18 14:25 Alkaline Phosphatase 98 IU/L (42-121) 07/09/18 14:25 Serum Total Protein 6.8 gm/dL (6.4-8.2) 07/09/18 14:25 Albumin 3.4 g/dl (3.2-5.5) 07/09/18 14:25 Globulin 3.4 gm/dL (2.3-3.5) 07/09/18 14:25 Albumin/Globulin Ratio 1.0 (1.1-1.9) L 07/09/18 14:25 Amylase 30 U/L (28-100) 07/09/18 14:25 Lipase 17 U/L (22-51) L 07/09/18 14:25 Urine Color Yellow (Yellow) 07/09/18 15:00 Urine Appearance Clear (Clear) 07/09/18 15:00 Urine pH 5.5 (4.5-7.8) 07/09/18 15:00 Ur Specific [place] 1.015 (1.005-1.030) 07/09/18 15:00 Urine Protein 30 mg/dL 07/09/18 15:00 Urine Glucose (UA) Negative mg/dL (Negative) 07/09/18 15:00 Urine Ketones Negative mg/dL (NEGATIVE) 07/09/18 15:00 Urine Blood Negative (Negative) 07/09/18 15:00 Urine Nitrite Negative 07/09/18 15:00 Urine Bilirubin Negative (NEGATIVE) 07/09/18 15:00 Urine Urobilinogen 0.2 mg/dL (0.2-1.0) 07/09/18 15:00 Ur Leukocyte Esterase Negative (Negative) 07/09/18 15:00 Urine RBC 0-1 /hpf 07/09/18 15:00 Urine WBC 0-1 /hpf 07/09/18 15:00 Ur Epithelial Cells 3-5 /hpf 07/09/18 15:00 Urine Bacteria Rare 07/09/18 15:00 Patient Name: CHING CARBALLO Gender: Male Date of : 1965 Referring Physician: FIDELINA VELÁSQUEZ Organization: [facility] Accession Number: [id number] Requested Date: July 09, 2018 14:06 Report Status: Final Requested Procedure: 1 Procedure Description: Abdoment/Pelvis w/o Contrast Modality: CT Findings Reporting MD: Alcides Stephen Fellow MD: Not available Dictation Time: Employee Relations Specialist: Not available Mold Burner Date: PROCEDURE: CT Abdomen and Pelvis Without Intravenous Contrast CLINICAL INDICATION: The patient is 53 years old and is Male; pain hx of neurofibromatosis s/p kidney transplant TECHNIQUE: Axial computed tomography images of the abdomen and pelvis without intravenous contrast. Sagittal and coronal reformatted images were created and reviewed. This exam was performed according to our departmental dose-optimization program, which includes automated exposure control, adjustment of the mA and/or kV according to patient size and/or use of iterative reconstruction technique. As a consequence of the lack of intravenous contrast, there is limited evaluation of the organs and soft tissues. COMPARISON: Noncontrast CT of the abdomen from 05/08/2018 FINDINGS: ARTIFACTS: Patient belt buckle results in beam hardening artifact which degrades image quality. LIMITATIONS: The LEFT abdomen is not included in the scan volume. Portions of the LEFT colon are not included. The entire lower LEFT hemithorax is not included. LUNG BASES: Unremarkable. No mass. No consolidation. HEART: There is a moderate pericardial effusion. The heart size is enlarged. ABDOMEN: LIVER: Unremarkable noncontrast appearance of the liver. GALLBLADDER AND BILE DUCTS: There is a large 5 cm cystic fluid collection located in the expected location of the distal CBD, pancreatic head and duodenal C-loop. This may represent a choledochocele/choledochal cyst. It is unchanged. There is mild central pneumobilia, extending into the LEFT hepatic lobe. This is new since the prior study. There are postsurgical changes from prior cholecystectomy in the gallbladder fossa. PANCREAS: See findings above and below. SPLEEN: No spleen is identified. [facility] [address] [place] [address], [address]th [place], [place] T [phone] F [phone] [email or web address] Report exported on SatJul 09, 2018 15:50:92 -1100 - Page 2 of 3 ADRENALS: Unremarkable. No mass. KIDNEYS AND URETERS: The [place] kidneys are not in the normal location. There is a renal transplant identified in the RIGHT lower quadrant. There is no renal transplant fluid collection noted. STOMACH AND BOWEL: There is suspected malrotation, as the stomach extends directly into midline bowel. There is associated absence of the pancreas and twisting of the mesenteric vessels at the root of the mesentery. There is no evidence of diverticulitis. There is no evidence of bowel obstruction. There is no opacification of the bowel with oral contrast. PELVIS: APPENDIX: Interval postsurgical changes are identified from prior appendectomy. BLADDER: Urinary bladder is unremarkable. No stones. REPRODUCTIVE: The prostate gland is enlarged. ABDOMEN and PELVIS: INTRAPERITONEAL SPACE: There is wispy stranding of the mesentery. BONES/JOINTS: There are degenerative changes of the spine identified. No acute fracture. No dislocation. SOFT TISSUES: There are persistent subcutaneous nodules identified. Some of these are larger than previously. There is a large 2.8 x 2.0 cm nodule in the RIGHT lateral pregluteal soft tissues. There is another smaller one in the anterior subcutaneous tissues of the LEFT lower quadrant. Does the patient have neurofibromatosis? There is a midline laparotomy scar in the subcutaneous tissues. VASCULATURE: See above. LYMPH NODES: Unremarkable. No significant retroperitoneal or pelvic lymphadenopathy. IMPRESSION: 1. The LEFT abdomen is not included in the scan volume. Portions of the LEFT colon are not included. Discussion was made with the sonography technologist who will attempt to retro-recon the images. 2. There is a large 5 cm cystic fluid collection located in the expected location of the distal CBD, pancreatic head and duodenal C-loop. This may represent a choledochocele/choledochal cyst. It is unchanged. 3. 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 There is associated absence of the pancreas and twisting of the mesenteric vessels at the root of the mesentery. 4. Absent spleen, absent kidneys and absent pancreas. Absent portions of the duodenum and some degree of small bowel malrotation. RIGHT lower quadrant renal transplant, unremarkable on noncontrast. [facility] [address] [place] [address] T [phone] F [phone] [email or web address] - Report exported on SatJul 09, 2018 15:50:45 -0600 - Page 3 of 3 5. There are persistent subcutaneous nodules identified. Some of these are larger than previously. There is a large 2.8 x 2.0 cm nodule in the RIGHT lateral pregluteal soft tissues. There is another smaller one in the anterior subcutaneous tissues of the LEFT lower quadrant. Does the patient have neurofibromatosis? Departure - Departure Clinical Impression: small bowel malrotation Disposition: Transfer to Hospital Condition: Fair Departure Forms: ED Discharge - Pt. Copy, Patient Portal Self Enrollment Instructions: DI for Abdominal Pain-Adult Referrals: Manohar Daigle MD [Primary Care Provider] - 1-2 Weeks Home Medications: Ambulatory Orders Atorvastatin Calcium [Lipitor] 10 mg PO DAILY@69902/26/16 Pancrelipase (Lipase-Protease- [Creon] 2 cap PO TID 02/26/16 Prednisone 5 mg PO DAILY@69902/26/16 Verapamil HCl [Verelan] 240 mg PO DAILY@69902/26/16 Aspirin [Aspirin EC] 81 mg PO DAILY@0706/15/16 Insulin Detemir [Levemir] 6 unit SUBCU BID 06/15/16 Allopurinol [Zyloprim] 100 mg PO DAILY 12/25/17 Mycophenolate Sodium [Myfortic] 360 mg PO BID 12/25/17 Omeprazole 20 mg PO DAILY 12/25/17 Amitriptyline HCl [Elavil 100MG] 100 mg PO BEDTIME 07/09/18 Colchicine 1.2 mg PO MOWEFR 07/09/18 Ergocalciferol [Vitamin D] 1 capsule PO WE 07/09/18 Glucagon HCl (Diagnostic) [Glucagon HCl Diagnostic] 1 mg IJ PRN PRN 07/09/18 Hydralazine HCl 100 mg PO Q8H 07/09/18 Insulin Lispro (Human) [Humalog] 4 unit SC AC 07/09/18 Insulin Lispro (Human) [Humalog] See Protocol SC AC 07/09/18 Levetiracetam 500 mg PO BEDTIME 07/09/18 Metoprolol Tartrate 50 mg PO BID 07/09/18 Tacrolimus 0.5 mg PO BID 07/09/18 Tiotropium [place]-Olodaterol [Stiolto Respimat 2.5-2.5 Mcg/Act] 2 inh IN DAILY 07/09/18 Transfer to Outside Facility - Transfer Information Accepting Provider:: Dr. Cintron Accepting Facility: [facility] Reason for Transfer: specialized care not available
--- NOTE | 2018-07-09 15:36 | CT ---
PROCEDURE: CT Abdomen and Pelvis Without Intravenous Contrast CLINICAL INDICATION: The patient is 53 years old and is Male; pain hx of neurofibromatosis s/p kidney transplant TECHNIQUE: Axial computed tomography images of the abdomen and pelvis without intravenous contrast. Sagittal and coronal reformatted images were created and reviewed. This exam was performed according to our departmental dose-optimization program, which includes automated exposure control, adjustment of the mA and/or kV according to patient size and/or use of iterative reconstruction technique. As a consequence of the lack of intravenous contrast, there is limited evaluation of the organs and soft tissues. COMPARISON: Noncontrast CT of the abdomen from 05/08/2018 FINDINGS: ARTIFACTS: Patient belt buckle results in beam hardening artifact which degrades image quality. LIMITATIONS: The LEFT abdomen is not included in the scan volume. Portions of the LEFT colon are not included. The entire lower LEFT hemithorax is not included. LUNG BASES: Unremarkable. No mass. No consolidation. HEART: There is a moderate pericardial effusion. The heart size is enlarged. ABDOMEN: LIVER: Unremarkable noncontrast appearance of the liver. GALLBLADDER AND BILE DUCTS: There is a large 5 cm cystic fluid collection located in the expected location of the distal CBD, pancreatic head and duodenal C-loop. This may represent a choledochocele/choledochal cyst. It is unchanged. There is mild central pneumobilia, extending into the LEFT hepatic lobe. This is new since the prior study. There are postsurgical changes from prior cholecystectomy in the gallbladder fossa. PANCREAS: See findings above and below. SPLEEN: No spleen is identified. ADRENALS: Unremarkable. No mass. KIDNEYS AND URETERS: The [place] kidneys are not in the normal location. There is a renal transplant identified in the RIGHT lower quadrant. There is no renal transplant fluid collection noted. STOMACH AND BOWEL: There is suspected malrotation, as the stomach extends directly into midline bowel. There is associated absence of the pancreas and twisting of the mesenteric vessels at the root of the mesentery. There is no evidence of diverticulitis. There is no evidence of bowel obstruction. There is no opacification of the bowel with oral contrast. PELVIS: APPENDIX: Interval postsurgical changes are identified from prior appendectomy. BLADDER: Urinary bladder is unremarkable. No stones. REPRODUCTIVE: The prostate gland is enlarged. ABDOMEN and PELVIS: INTRAPERITONEAL SPACE: There is wispy stranding of the mesentery. BONES/JOINTS: There are degenerative changes of the spine identified. No acute fracture. No dislocation. SOFT TISSUES: There are persistent subcutaneous nodules identified. Some of these are larger than previously. There is a large 2.8 x 2.0 cm nodule in the RIGHT lateral pregluteal soft tissues. There is another smaller one in the anterior subcutaneous tissues of the LEFT lower quadrant. Does the patient have neurofibromatosis? There is a midline laparotomy scar in the subcutaneous tissues. VASCULATURE: See above. LYMPH NODES: Unremarkable. No significant retroperitoneal or pelvic lymphadenopathy. IMPRESSION: 1. The LEFT abdomen is not included in the scan volume. Portions of the LEFT colon are not included. Discussion was made with the mechatronics technologist who will attempt to retro-recon the images. 2. There is a large 5 cm cystic fluid collection located in the expected location of the distal CBD, pancreatic head and duodenal C-loop. This may represent a choledochocele/choledochal cyst. It is unchanged. 3. 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 There is associated absence of the pancreas and twisting of the mesenteric vessels at the root of the mesentery. 4. Absent spleen, absent kidneys and absent pancreas. Absent portions of the duodenum and some degree of small bowel malrotation. RIGHT lower quadrant renal transplant, unremarkable on noncontrast. 5. There are persistent subcutaneous nodules identified. Some of these are larger than previously. There is a large 2.8 x 2.0 cm nodule in the RIGHT lateral pregluteal soft tissues. There is another smaller one in the anterior subcutaneous tissues of the LEFT lower quadrant. Does the patient have neurofibromatosis? Electronically signed by: Alcides Stephen MD 07/09/2018 3:35 PM [employer]
[2018-07-09 16:52] VITALS: BP 143/94; TEMP 97.7; O2SAT 98
== END 2018-07-09 16:52 | disposition short-term general hospital (02) ==
LOC: ER 13:58
DX: Q43.3 Congenital malformations of intestinal fixation (principal); R10.30 Lower abdominal pain, unspecified; I50.9 Heart failure, unspecified; E78.00 Pure hypercholesterolemia, unspecified; I11.0 Hypertensive heart disease with heart failure; E10.9 Type 1 diabetes mellitus without complications; Q85.00 Neurofibromatosis, unspecified; Z85.9 Personal history of malignant neoplasm, unspecified; Z90.49 Acquired absence of other specified parts of digestive tract; Z94.0 Kidney transplant status; Z90.81 Acquired absence of spleen; Z90.410 Acquired total absence of pancreas
CPT/HCPCS: 36415; 74176; 80053; 81001; 82150; 83690; 85025; J2270

== ENCOUNTER → 2018-08-09 | Outpatient (CLI) | payer OTHER, MEDICAID | LOC: GMAM 14:43 | PROVIDERS: ATTEND Family Medicine | DX: E04.1 Nontoxic single thyroid nodule (principal); E55.9 Vitamin D deficiency, unspecified; M10.9 Gout, unspecified ==

== ENCOUNTER → 2018-09-21 | Outpatient (CLI) | payer OTHER, MEDICAID | LOC: GMAM 14:56 | PROVIDERS: ATTEND Family Medicine | DX: E10.9 Type 1 diabetes mellitus without complications (principal); Z48.298 Encounter for aftercare following other organ transplant ==

== ENCOUNTER → 2018-11-01 | Outpatient (CLI) | payer OTHER, MEDICAID ==
--- NOTE | 2018-11-02 10:33 | US ---
EXAM DESCRIPTION: Soft Tissue,Abdomen: ULTRASOUND. CLINICAL HISTORY: ABDOMINAL WALL LESION. Palpable lump left upper quadrant of abdomen. Improved for 6 months and now stable for 6 months. History of neurofibromatosis. Kidney transplant. COMPARISON: CT abdomen and pelvis 07/09/2018. CT abdomen and pelvis 05/08/2018. TECHNIQUE: Transabdominal scanning: dietrich-scale and Doppler modes FINDINGS: A hypoechoic solid mass more likely than debris-filled cyst in the subcutaneous adipose tissue between the skin surface in the abdominal wall. Dimensions are 4 cm transverse, 3.7 cm longitudinal and 5 mm AP dimension. Minimal vascularity abutting the margin. Wider than tall orientation and posterior acoustic enhancement. On the CT scan in April 2018, the mass measured 3.5 cm transverse and 3.5 cm craniocaudal, approximately 9 mm thick. IMPRESSION: Subdermal 3.7 cm hypoechoic mass minimal peripheral vascularity anterior left upper quadrant, most likely deposit of neurofibromatosis, and minimal change since the CT scan in April 2018. Electronically signed by: Matthew Rosado MD 11/02/2018 10:30 AM CDT
== END ==
LOC: US 11:22
PROVIDERS: ATTEND Podiatrist Foot & Ankle Surgery
DX: S30.1XXA Contusion of abdominal wall, initial encounter (principal); R22.2 Localized swelling, mass and lump, trunk; M10.9 Gout, unspecified; Z12.5 Encounter for screening for malignant neoplasm of prostate
CPT/HCPCS: 76705; 84550; G0103

== ENCOUNTER → 2019-01-16 | Outpatient (CLI) | payer OTHER, MEDICAID | LOC: LAB.O 12:13 | PROVIDERS: ATTEND Internal Medicine Nephrology | DX: Z48.22 Encounter for aftercare following kidney transplant (principal) ==

== ENCOUNTER → 2019-02-20 | Outpatient (CLI) | payer OTHER, MEDICAID | LOC: GMAM 10:43 | PROVIDERS: ATTEND Family Medicine | DX: E04.1 Nontoxic single thyroid nodule (principal); E10.9 Type 1 diabetes mellitus without complications; I10 Essential (primary) hypertension; M10.00 Idiopathic gout, unspecified site ==

== ENCOUNTER → 2019-03-10 | Outpatient (CLI) | payer OTHER, MEDICAID | LOC: GMAM 13:06 | PROVIDERS: ATTEND Family Medicine | DX: Z48.22 Encounter for aftercare following kidney transplant (principal) ==

== ENCOUNTER 2019-04-17 13:33 | Emergency (ER) | payer OTHER, MEDICAID ==
[2019-04-17] MEDS ORDERED: SODIUM CHLORIDE 0.9% (FLUSH) 10 ML SYG IV PRN (14:00)
[2019-04-17] MEDS ORDERED: PANTOPRAZOLE SODIUM IV 40 MG VIAL IV ONE (14:01)
--- NOTE | 2019-04-17 14:41 | RAD ---
EXAM DESCRIPTION: Chest,1 View CLINICAL HISTORY: 53 years Male, GI bleed COMPARISON: 05/08/2018 FINDINGS: Heart size and pulmonary vessels are within normal limits. There is no pneumothorax or pleural effusion. The lungs are clear bilaterally. The soft tissues are unremarkable. No acute osseous findings. IMPRESSION: No acute cardiopulmonary abnormality. Electronically signed by: Timmy Mauricio MD 04/17/2019 2:39 PM CDT
--- NOTE | 2019-04-17 15:12 | ED.PDOC ---
History of Present Illness - General Chief Complaint: Abdominal Pain Stated Complaint: Rectal bleeding Time Seen by Provider: 04/17/19 13:51 Source: patient Additional Information: 53 y/o M presents to the ED c/o bright red blood per rectum onset this am. He reports initially it was stool mixed with diarrhea but now it is bright red blood. He denies any significant abd pain and no vomiting. Nothing he does seems to make sx better or worse. He has a GI Dr. Lazcano in [place] who did a colonoscopy recently but he is not aware of what the results were. He denies hx of similar sx in the past and is not sure why they did the colonoscopy. - History of Present Illness Allergies/Adverse Reactions: Allergies NO KNOWN ALLERGY Allergy (Verified 05/26/18 16:12) Home Medications: Ambulatory Orders Atorvastatin Calcium [Lipitor] 10 mg PO DAILY@0702/26/16 Pancrelipase (Lipase-Protease- [Creon] 2 cap PO TID 02/26/16 Prednisone 5 mg PO DAILY@69902/26/16 Verapamil HCl [Verelan] 240 mg PO DAILY@69902/26/16 Aspirin [Aspirin EC] 81 mg PO DAILY@0706/15/16 Insulin Detemir [Levemir] 6 unit SUBCU BID 06/15/16 Allopurinol [Zyloprim] 100 mg PO DAILY 12/25/17 Mycophenolate Sodium [Myfortic] 360 mg PO BID 12/25/17 Omeprazole 20 mg PO DAILY 12/25/17 Amitriptyline HCl [Elavil 100MG] 100 mg PO BEDTIME 07/09/18 Colchicine 1.2 mg PO MOWEFR 07/09/18 Ergocalciferol [Vitamin D] 1 capsule PO WE 07/09/18 Glucagon HCl (Diagnostic) [Glucagon HCl Diagnostic] 1 mg IJ PRN PRN 07/09/18 Hydralazine HCl 100 mg PO Q8H 07/09/18 Insulin Lispro [Humalog] 4 unit SC AC 07/09/18 Insulin Lispro [Humalog] See Protocol SC AC 07/09/18 Levetiracetam 500 mg PO BEDTIME 07/09/18 Metoprolol Tartrate 50 mg PO BID 07/09/18 Tacrolimus 0.5 mg PO BID 07/09/18 Tiotropium [place]-Olodaterol [Stiolto Respimat 2.5-2.5 Mcg/Act] 2 inh IN DAILY 07/09/18 Review of Systems - Review of Systems Constitutional: Denies: chills, fever EENTM: Denies: nose congestion, throat pain Respiratory: Denies: cough, short of breath Cardiology: Denies: chest pain, palpitations Gastrointestinal/Abdominal: States: diarrhea, nausea, other - rectal bleeding. Denies: abdominal pain Genitourinary: Denies: dysuria, hematuria Skin: Denies: lesions, rash Neurological: Denies: headache, numbness, weakness Past Medical History (General) - Patient Medical History Hx Seizures: No Hx Stroke: No Hx Dementia: No Hx Asthma: No Hx of COPD: No Hx Cardiac Disorders: Yes - hypercholesterolemia Hx Congestive Heart Failure: Yes Hx Pacemaker: No Hx Hypertension: Yes Hx Thyroid Disease: No Hx Diabetes: Yes Hx Gastroesophageal Reflux: Yes - Crohn's Hx Renal Disease: Yes - kidney transplant in 1994 for hx ESRD Hx Cancer: Yes Hx of HIV: No Hx Hepatitis C: No Hx MRSA: No - Vaccination History Hx Tetanus, Diphtheria Vaccination: No Hx Influenza Vaccination: Yes Hx Pneumococcal Vaccination: Yes - Social History Hx Tobacco Use: No Hx Chewing Tobacco Use: No Hx Alcohol Use: No Hx Substance Use: No Hx Substance Use Treatment: No Hx Depression: No - Female History Patient : No Family Medical History - Family History Father Family History: Unknown Living Status: Unknown Hx Family Hypertension: Yes Hx Cardiac Disease: Yes Hx Family;Other: neurofibromatosis mom/sister Physical Exam - Physical Exam General Appearance: Alert, Well Developed, Well Nourished Eye Exam: bilateral normal Ears, Nose, Throat: normal ENT inspection, other - no blood in posterior pharynx Neck: full range of motion, normal inspection Respiratory: lungs clear, normal breath sounds, no respiratory distress Cardiovascular/Chest: normal peripheral pulses, regular rate, rhythm, no edema, no murmur Peripheral Pulses: radial,right: 2+, radial,left: 2+, dorsalis pedis,right: 2+, dorsalis pedis,left: 2+ Gastrointestinal/Abdominal: non tender, soft, abnormal bowel sounds - hyperactive Rectal Exam: heme positive stool Extremity: normal range of motion, normal inspection, no pedal edema Neurologic: alert, other - moves all extremities without focal deficits Skin Exam: normal color, warm/dry Progress - Progress Progress: 04/17/19 14:50 Pt recheck: discussed lab and imaging results so far. Pt has insulin pump and it has been adjusted after blood sample was obtained. We discussed plans to contact his GI doctors office. 15:[address] Lazcano's office- no answer. Left message for return call. 15:27 Pt has has multiple grossly blood BMs in the ED, will need to transfer to facility with GI. Pt requests [facility]. VSS have remained stable. 04/17/19 15:[address] Ramirez, ER physician at [facility]- will accept pt in transfer. Pt updated on plan. - Results/Orders Results/Orders: 04/17/19 14:00 IV Care:Saline Lock per Protoc QSHIFT Sodium Chloride 0.9% (Flush) [Saline Flush Syringe] 10 ml IV PRN PRN Laboratory Results - last 24 hr 04/17/19 04/17/19 04/17/19 14:02 14:20 14:20 WBC 9.0 RBC 4.21 L Hgb 12.1 L Hct 38.5 L MCV 91.4 MCH 28.6 MCHC 31.4 L RDW 14.3 Plt Count 205 MPV 13.0 H Absolute Neuts (auto) 7.20 H Absolute Lymphs (auto) 0.80 L Absolute Monos (auto) 0.80 Absolute Eos (auto) 0.00 Absolute Basos (auto) 0.10 Neutrophils % 80.7 H Lymphocytes % 9.1 L Monocytes % 8.7 Eosinophils % 0.3 L Basophils % 1.2 PT 9.9 INR 0.99 PTT (SP) 23.0 Sodium Potassium Chloride Carbon Dioxide Anion Gap BUN Creatinine BUN/Creatinine Ratio Random Glucose Serum Osmolality Calcium Lipase Stool Occult Blood Positive 04/17/19 14:20 WBC RBC Hgb Hct MCV MCH MCHC RDW Plt Count MPV Absolute Neuts (auto) Absolute Lymphs (auto) Absolute Monos (auto) Absolute Eos (auto) Absolute Basos (auto) Neutrophils % Lymphocytes % Monocytes % Eosinophils % Basophils % PT INR PTT (SP) Sodium 131 L Potassium 4.6 Chloride 101 Carbon Dioxide 19 L Anion Gap 15.6 BUN 49 H Creatinine 2.33 H BUN/Creatinine Ratio 21.0 H Random Glucose 546 H* Serum Osmolality 300.9 H Calcium 8.7 Lipase 18 L Stool Occult Blood Departure - Departure Clinical Impression: GI bleed Qualifiers: GI bleed type/associated pathology: unspecified gastrointestinal hemorrhage type Qualified Code(s): K92.2 - Gastrointestinal hemorrhage, unspecified Home Medications: Ambulatory Orders Atorvastatin Calcium [Lipitor] 10 mg PO DAILY@69902/26/16 Pancrelipase (Lipase-Protease- [Creon] 2 cap PO TID 02/26/16 Prednisone 5 mg PO DAILY@69902/26/16 Verapamil HCl [Verelan] 240 mg PO DAILY@69902/26/16 Aspirin [Aspirin EC] 81 mg PO DAILY@69906/15/16 Insulin Detemir [Levemir] 6 unit SUBCU BID 06/15/16 Allopurinol [Zyloprim] 100 mg PO DAILY 12/25/17 Mycophenolate Sodium [Myfortic] 360 mg PO BID 12/25/17 Omeprazole 20 mg PO DAILY 12/25/17 Amitriptyline HCl [Elavil 100MG] 100 mg PO BEDTIME 07/09/18 Colchicine 1.2 mg PO MOWEFR 07/09/18 Ergocalciferol [Vitamin D] 1 capsule PO WE 07/09/18 Glucagon HCl (Diagnostic) [Glucagon HCl Diagnostic] 1 mg IJ PRN PRN 07/09/18 Hydralazine HCl 100 mg PO Q8H 07/09/18 Insulin Lispro [Humalog] 4 unit SC AC 07/09/18 Insulin Lispro [Humalog] See Protocol SC AC 07/09/18 Levetiracetam 500 mg PO BEDTIME 07/09/18 Metoprolol Tartrate 50 mg PO BID 07/09/18 Tacrolimus 0.5 mg PO BID 07/09/18 Tiotropium [place]-Olodaterol [Stiolto Respimat 2.5-2.5 Mcg/Act] 2 inh IN DAILY 07/09/18 Transfer to Outside Facility - Transfer Information Decision to Transfer Date: 04/17/19 Decision to Transfer Time: 15:28 Reason for Transfer: required specialist not available Accepting Provider:: Dr. Ramirez Accepting Facility: [facility]
[2019-04-17] MEDS ORDERED: SODIUM CHLORIDE 0.9% 1000ML 1,000 ML IVS PRN (15:29)
[2019-04-17 16:12] VITALS: O2SAT 100
[2019-04-17 17:48] VITALS: BP 166/106
[2019-04-17 19:50] VITALS: TEMP 98.9
== END 2019-04-17 18:30 | disposition home or self-care (01) ==
LOC: ER 13:33
DX: K62.5 Hemorrhage of anus and rectum (principal); R19.7 Diarrhea, unspecified; R11.0 Nausea; E78.00 Pure hypercholesterolemia, unspecified; I50.9 Heart failure, unspecified; E11.9 Type 2 diabetes mellitus without complications; I10 Essential (primary) hypertension; K50.90 Crohn's disease, unspecified, without complications; Z94.0 Kidney transplant status; Z85.9 Personal history of malignant neoplasm, unspecified; Z79.4 Long term (current) use of insulin; Z79.899 Other long term (current) drug therapy; Z79.82 Long term (current) use of aspirin
CPT/HCPCS: 36415; 71045; 80048; 82270; 83690; 85025; 85610; 85730; J7030

== ENCOUNTER 2019-06-01 14:09 | Observation (INO) | payer MEDICARE, MEDICAID ==
[2019-06-01] MEDS ORDERED: SODIUM CHLORIDE 0.9% 500ML 500 ML IVS ONE (14:22)
--- NOTE | 2019-06-01 14:45 | ED.PDOC ---
History of Present Illness - General Chief Complaint: General Stated Complaint: Dizziness, dribbling Time Seen by Provider: 06/01/19 14:11 Exam Limitations: no limitations - History of Present Illness Initial Comments: 54 M +pmh presents to ED c/o acute onset of dizziness today. Pt informs that he has recent medication change starting 40mg Lasix qD due to hyperkalemia. He denies any other recent medical changes and endorses maintaining his usual fluid and food intake. He denies associated headache, neck pain, CP, SOB, f/c, n/v/d, and/or acute changes in bowels/urination. Pt is otherwise without any other acute complaints or symptoms. Allergies/Adverse Reactions: Allergies NO KNOWN ALLERGY Allergy (Verified 05/26/18 16:12) Home Medications: Ambulatory Orders Atorvastatin Calcium [Lipitor] 10 mg PO DAILY@0702/26/16 Pancrelipase (Lipase-Protease- [Creon] 2 cap PO TIDFD 02/26/16 RX: Prednisone 5 mg PO DAILY@69902/26/16 Verapamil HCl [Verelan] 240 mg PO DAILY@69902/26/16 Aspirin [Aspirin EC] 81 mg PO DAILY@0706/15/16 Mycophenolate Sodium [Myfortic] 360 mg PO BID 12/25/17 Amitriptyline HCl [Elavil 100MG] 100 mg PO BEDTIME 07/09/18 Colchicine 1.2 mg PO MOWEFR 07/09/18 Ergocalciferol [Vitamin D] 1 capsule PO TH 07/09/18 Glucagon HCl (Diagnostic) [Glucagon HCl Diagnostic] 1 mg SC PRN PRN 07/09/18 Insulin Lispro [Humalog] 0 unit SC AC PRN 07/09/18 Levetiracetam 500 mg PO BEDTIME 07/09/18 RX: Hydralazine HCl [Hydralazine Hydrochloride] 100 mg PO Q8H 07/09/18 RX: Metoprolol Tartrate 50 mg PO BID 07/09/18 Tacrolimus 2 capsule PO BID 07/09/18 Tiotropium [place]-Olodaterol [Stiolto Respimat 2.5-2.5 Mcg/Act] 2 inh IN DAILY 07/09/18 Esomeprazole Magnesium 20 mg PO DAILY 06/01/19 Febuxostat 40 mg PO DAILY 06/01/19 Furosemide 40 mg PO DAILY 06/01/19 RX: Clopidogrel Bisulfate 75 mg PO DAILY 06/01/19 Review of Systems - Review of Systems Constitutional: States: other - generalized dizziness. Denies: chills, diaphoresis, fever, weakness EENTM: Denies: blurred vision, throat pain Respiratory: Denies: cough, short of breath Cardiology: Denies: chest pain, edema, palpitations Gastrointestinal/Abdominal: Denies: abdominal pain, constipation, diarrhea, nausea, vomiting Genitourinary: Denies: dysuria, frequency Musculoskeletal: Denies: back pain, joint swelling Skin: Denies: change in color, rash Neurological: States: other - +dizziness/lightheadedness. Denies: headache, weakness Endocrine: Denies: increased thirst Past Medical History (General) - Patient Medical History Hx Seizures: No Hx Stroke: No Hx Dementia: No Hx Asthma: No Hx of COPD: No Hx Cardiac Disorders: Yes - hypercholesterolemia Hx Congestive Heart Failure: Yes Hx Pacemaker: No Hx Hypertension: Yes Hx Thyroid Disease: No Hx Diabetes: Yes Hx Gastroesophageal Reflux: Yes - Crohn's Hx Renal Disease: Yes - kidney transplant in 1994 for hx ESRD Hx Cancer: Yes Hx of HIV: No Hx Hepatitis C: No Hx MRSA: No - Vaccination History Hx Tetanus, Diphtheria Vaccination: No Hx Influenza Vaccination: Yes Hx Pneumococcal Vaccination: Yes - Social History Hx Tobacco Use: No Hx Chewing Tobacco Use: No Hx Alcohol Use: No Hx Substance Use: No Hx Substance Use Treatment: No Hx Depression: No - Activities of Daily Living Detention/Assisted Living (if applicable):: [facility] - Female History Patient : No Family Medical History - Family History Father Family History: Unknown Living Status: Unknown Hx Family Hypertension: Yes Hx Cardiac Disease: Yes Hx Family;Other: neurofibromatosis mom/sister Physical Exam - Physical Exam General Appearance: Alert, Comfortable, Well Developed, Other - Mild dehydration with decreased skin turgor and dry mucous membranes, tachy on monitor and auscultation. Eye Exam: bilateral normal, bilateral other - no scleral icterus, conjuctiva wnl, PERRLA, EOM intact Ears, Nose, Throat: other - no nasal congestion, dry oral mucous membranes, Neck: full range of motion, supple, other - no jvd Respiratory: lungs clear, normal breath sounds, no respiratory distress, no accessory muscle use Cardiovascular/Chest: normal peripheral pulses, regular rate, rhythm, no edema, no gallop, no JVD Gastrointestinal/Abdominal: normal bowel sounds, non tender, soft Back Exam: no CVA tenderness Extremity: normal inspection, no pedal edema Neurologic: alert, normal mood/affect, oriented x 3 Skin Exam: normal color, warm/dry, other - no rash, no petechia Progress - Progress Progress: 06/01/19 14:48 Presents with likely dehydration from 1 month newly started Lasix at 40mg daily. Pt is tachycardic with clinical signs of dehydration and his dizziness is likely secondary. No clinical concern for neuro/cardiogenic dizziness at this time. I will obtain labs, imaging, EKG, provide appropriate pharmacotherapy as indicated, and continue to monitor/reassess. 06/01/19 16:08 1601 CMP has resulted with significant hyperglycemia, Cr elevation in setting of renal transplant, hypomagnesemia. Pt will require admission. Pt is not in DKA or with HHS. Despite serum glucose being >800, pt's glucose meter reads 108. 1604 I have consulted with Hospitalist Charles Louis and discussed pt's case in ED along with current findings. He agrees with admission. I have spoken with pt and discussed lab findings, imaging findings, and need for admission. Pt agrees with plan. - Results/Orders Results/Orders: EKG read @1431: Sinus bradycardia @ 57, axis deviation, intervals wnl, no ST elevations/depressions, nonspecific ST/T-wave changes. No STEMI. Laboratory Tests 06/01/19 06/01/19 06/01/19 14:55 14:55 14:55 WBC 9.3 RBC 4.13 L Hgb 12.1 L Hct 38.2 L MCV 92.3 MCH 29.3 MCHC 31.7 L RDW 14.0 Plt Count 248 MPV 13.1 H Absolute Neuts (auto) 7.30 H Absolute Lymphs (auto) 0.80 L Absolute Monos (auto) 1.00 H Absolute Eos (auto) 0.00 Absolute Basos (auto) 0.10 Neutrophils % 78.8 H Lymphocytes % 8.7 L Monocytes % 10.6 H Eosinophils % 0.5 L Basophils % 1.4 pCO2 pO2 HCO3 ABG pH ABG O2 Saturation ABG Base Excess ABG Deoxyhemoglobin Oxyhemoglobin % Carboxyhemoglobin % Methemoglobin % Sat Calc Total Hemoglobin Sodium 125 L Potassium 4.1 Chloride 91 L Carbon Dioxide 22 Anion Gap 16.1 BUN 51 H Creatinine 2.93 H BUN/Creatinine Ratio 17.4 POC Glucose Random Glucose 808 H* Serum Osmolality 304.6 H Calcium 8.8 Magnesium 1.5 L Total Bilirubin 0.8 AST 23 ALT 22 Alkaline Phosphatase 102 Troponin I 0.03 Serum Total Protein 7.0 Albumin 3.6 Globulin 3.4 Albumin/Globulin Ratio 1.1 Urine Color Urine Appearance Urine pH Ur Specific [place] Urine Protein Urine Glucose (UA) Urine Ketones Urine Blood Urine Nitrite Urine Bilirubin Urine Urobilinogen Ur Leukocyte Esterase Urine RBC Urine WBC Ur Epithelial Cells Amorphous Sediment Urine Bacteria 06/01/19 06/01/19 06/01/19 15:30 17:20 17:38 WBC RBC Hgb Hct MCV MCH MCHC RDW Plt Count MPV Absolute Neuts (auto) Absolute Lymphs (auto) Absolute Monos (auto) Absolute Eos (auto) Absolute Basos (auto) Neutrophils % Lymphocytes % Monocytes % Eosinophils % Basophils % pCO2 37 pO2 97 HCO3 19.8 ABG pH 7.350 ABG O2 Saturation 98.1 ABG Base Excess -4.8 ABG Deoxyhemoglobin 1.9 Oxyhemoglobin % 95.7 Carboxyhemoglobin % -0.6 L Methemoglobin % Sat 3.0 H Calc Total Hemoglobin 10.9 L Sodium Potassium Chloride Carbon Dioxide Anion Gap BUN Creatinine BUN/Creatinine Ratio POC Glucose 385 H Random Glucose Serum Osmolality Calcium Magnesium Total Bilirubin AST ALT Alkaline Phosphatase Troponin I Serum Total Protein Albumin Globulin Albumin/Globulin Ratio Urine Color Yellow Urine Appearance Clear Urine pH 5.5 Ur Specific [place] 1.010 Urine Protein Trace Urine Glucose (UA) 500 H Urine Ketones Negative Urine Blood Negative Urine Nitrite Negative Urine Bilirubin Negative Urine Urobilinogen 0.2 Ur Leukocyte Esterase Negative Urine RBC 0-1 Urine WBC 0 Ur Epithelial Cells 0 Amorphous Sediment 1+ Urine Bacteria 0 EXAM DESCRIPTION: Chest,2 Views CLINICAL HISTORY: dizziness COMPARISON: April 17, 2019 TECHNIQUE: PA/lateral FINDINGS: There is no cardiac or pulmonary abnormality. The lungs are clear. There is no effusion. IMPRESSION: 1. Normal two-view chest. 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 Qualified Code(s): E11.65 - Type 2 diabetes mellitus with hyperglycemia Time of Disposition: 16:04 Disposition: Admit Patient Home Medications: Ambulatory Orders Atorvastatin Calcium [Lipitor] 10 mg PO DAILY@69902/26/16 Pancrelipase (Lipase-Protease- [Creon] 2 cap PO TIDFD 02/26/16 RX: Prednisone 5 mg PO DAILY@69902/26/16 Verapamil HCl [Verelan] 240 mg PO DAILY@69902/26/16 Aspirin [Aspirin EC] 81 mg PO DAILY@69906/15/16 Mycophenolate Sodium [Myfortic] 360 mg PO BID 12/25/17 Amitriptyline HCl [Elavil 100MG] 100 mg PO BEDTIME 07/09/18 Colchicine 1.2 mg PO MOWEFR 07/09/18 Ergocalciferol [Vitamin D] 1 capsule PO TH 07/09/18 Glucagon HCl (Diagnostic) [Glucagon HCl Diagnostic] 1 mg SC PRN PRN 07/09/18 Insulin Lispro [Humalog] 0 unit SC AC PRN 07/09/18 Levetiracetam 500 mg PO BEDTIME 07/09/18 RX: Hydralazine HCl [Hydralazine Hydrochloride] 100 mg PO Q8H 07/09/18 RX: Metoprolol Tartrate 50 mg PO BID 07/09/18 Tacrolimus 2 capsule PO BID 07/09/18 Tiotropium [place]-Olodaterol [Stiolto Respimat 2.5-2.5 Mcg/Act] 2 inh IN DAILY 07/09/18 Esomeprazole Magnesium 20 mg PO DAILY 06/01/19 Febuxostat 40 mg PO DAILY 06/01/19 Furosemide 40 mg PO DAILY 06/01/19 RX: Clopidogrel Bisulfate 75 mg PO DAILY 06/01/19 Decision To Admit - Decistion To Admit Decision to Admit Reason: Admit from ER Decision to Admit Date: 06/01/19 Decision to Admit Time: 16:01
--- NOTE | 2019-06-01 14:55 | RAD ---
EXAM DESCRIPTION: Chest,2 Views CLINICAL HISTORY: dizziness COMPARISON: April 17, 2019 TECHNIQUE: PA/lateral FINDINGS: There is no cardiac or pulmonary abnormality. The lungs are clear. There is no effusion. IMPRESSION: 1. Normal two-view chest. Electronically signed by: Luis Felipe Chowdhury MD 06/01/2019 2:53 PM [facility]
[2019-06-01] MEDS ORDERED: MAGNESIUM SULFATE INJ 2 GM in SODIUM CHLORIDE 0.9% 100ML 100 ML IVPB ONE (15:59)
[2019-06-01] MEDS ORDERED: INSULIN, REG.(HUMAN) 100 U/ML VIAL IV ONE (15:59)
[2019-06-01] MEDS ORDERED: SODIUM CHLORIDE 0.9% 1000ML 1,000 ML IVS ONE (15:59)
[2019-06-01] MEDS ORDERED: MAGNESIUM SULFATE PREMIX 2GM 50 ML IVPB ONE (16:14)
--- NOTE | 2019-06-01 17:46 | HP ---
SUPERVISING PHYSICIAN: Celestino Kyle M.D. CHIEF COMPLAINT: Dizziness. HISTORY OF PRESENT ILLNESS: This is a 54 year-old male patient who resides at [facility]. He came today for dizziness. Apparently that is his only real complaint. While in the Emergency Room, his labs showed a blood sugar of over 800. He has an insulin pump and a subcutaneous glucose monitor that states that the glucose has been around the 100s, so it seems that it was probably malfunctioning. In the Emergency Room, he got a liter and a half of saline and continuance of IV insulin, however given the fact that his blood sugar was in the 800s it was felt that they could not drop it low enough in the Emergency Room and send him back to [facility], so he was referred for admission. By the time he got to the floor, his glucose was actually in the 300s. He is alert and oriented. He is a somewhat poor historian. PAST MEDICAL HISTORY: 1. Hypertension. 2. History of kidney transplant on immunosuppressant medications. 3. Hypertension. 4. Gout. 5. Seizure disorder. 6. History of pancreas removal requiring pancreatic enzyme use. 7. History of transient ischemic attacks. 8. According to his other record he has neurofibromatosis. 9. Medical history also includes diabetes mellitus type 1. 10. Crohn's disease. PAST SURGICAL HISTORY: 1. Renal transplant. 2. Spleen and pancreas removal. 3. Umbilical and incisional hernia repairs. 4. Appendectomy. 5. Cholecystectomy. CURRENT MEDICATIONS: Please see medication reconciliation list once it is complete in the computer. ALLERGIES: NO KNOWN DRUG ALLERGIES. FAMILY HISTORY: Mom and sister had neurofibromatosis as well. SOCIAL HISTORY: The patient is a nondrinker and nonsmoker. No illicit drugs. He resides at the custodial at [facility]. REVIEW OF SYSTEMS: CONSTITUTIONAL: No fever or chills. No recent weight loss or weight gain. HEENT: No headaches, vision changes, ear pain, nasal congestion or throat pain. RESPIRATORY: No cough, hemoptysis or pleuritic chest pain. CARDIOVASCULAR: No chest pain, palpitations or peripheral edema. GASTROINTESTINAL: No nausea, vomiting, diarrhea, constipation or abdominal pain. GENITOURINARY: No history of frequency or flank pain. MUSCULOSKELETAL: No joint pains, joint swelling or muscle cramps. ENDOCRINE: No polydipsia, polyuria or polyphagia. No heat or cold intolerance. NEUROLOGIC: Positive for dizziness. No seizures, paresthesias or syncope. SKIN: No rashes, lesions or wounds. PHYSICAL EXAMINATION: VITAL SIGNS: blood pressure 149/83, heart rate 73, respiratory rate 20, temperature 98.5, oxygen saturation 98%. GENERAL: Mr. Bolivar is a 54 year-old male patient who is in no active distress. CHEST: Lungs are clear to auscultation bilaterally. CARDIOVASCULAR: Regular rate and rhythm. Normal S1 and S2. ABDOMEN: Soft. Positive bowel sounds. EXTREMITIES: Lower extremities with no edema. NEUROLOGIC: The patient is alert, kind of scatter brained and all over the place giving history, but knows where he is and who he is. LABORATORY: Labs and films as discussed. Hemoglobin 12.1, hematocrit 38.2, platelet count 248, white count 9.3. Arterial blood gas is within normal limits. Chemistry with a low magnesium at 1.5, glucose 808, sodium 125, chloride 91. Chest x-ray is unremarkable. ASSESSMENT: 1. Hyperglycemia without evidence of hyperosmolar hyperglycemic state or diabetic ketoacidosis. 2. Hyponatremia. 3. Electrolyte imbalance (hypomagnesemia). 4. Dehydration secondary to hyperglycemia. 5. History of renal transplant on immunosuppressive medications. 6. Hypertension. 7. 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 PLAN: At this time the patient will be admitted to the Medical/Surgical Unit. Due to the improved blood sugar I will put him on every 4 hours blood sugars with sliding scale. I will start him on an 1800 ADA diet. I have placed him on IV fluids as well. Will recheck his labs in the morning. If stable, he can go back to [facility]. I will resume home medicines once they are verified in the computer as well. #[id number] [facility]
[2019-06-01] MEDS ORDERED: GLUCAGON INJ 1 MG VIAL SUBCU PRN (18:19)
[2019-06-01] MEDS ORDERED: DEXTROSE 10% 500ML IVPB PRN (18:19)
[2019-06-01] MEDS ORDERED: SODIUM CHLORIDE 0.9% (FLUSH) 10 ML SYG IV PRN (18:39)
[2019-06-01] MEDS ORDERED: HYDRALAZINE HCL 100 MG PO SCH (18:45)
[2019-06-01] MEDS ORDERED: IV SET AND CAP CHANGE INJ INJ SCH (19:00)
[2019-06-01] MEDS ORDERED: levETIRAcetam 250 MG TAB ONE (19:46)
[2019-06-01] MEDS ORDERED: AMITRIPTYLINE HCL 25 MG TAB ONE (19:46)
[2019-06-01] MEDS ORDERED: ASPIRIN (ENTERIC COATED) 81 MG TAB PO ONE (19:47)
[2019-06-01] MEDS ORDERED: VERAPAMIL ER 120 MG TAB PO ONE (19:52)
[2019-06-01] MEDS ORDERED: ATORVASTATIN 10 MG TAB ONE (19:52)
[2019-06-01] MEDS ORDERED: predniSONE 5 MG TAB ONE (19:52)
[2019-06-01] MEDS: INSULIN LISPRO 100 UNITS/ML PEN SUBCU SCH (19:59)
[2019-06-01] MEDS: SODIUM CHLORIDE 0.9% 1000ML 1,000 ML IVS PRN (20:49)
[2019-06-01] MEDS: TACROLIMUS PO SCH (20:55)
[2019-06-01] MEDS: METOPROLOL TARTRATE 50 MG TAB PO SCH (20:55)
[2019-06-01] MEDS: MYCOPHENOLATE SODIUM 360 MG PO SCH (20:55)
[2019-06-01] MEDS ORDERED: AMITRIPTYLINE HCL 100 MG PO SCH (21:00)
[2019-06-01] MEDS ORDERED: NON-FORMULARY MEDICATION 1 EA MIS (Levetiracetam [Levetiracetam] 500 MG) PO SCH (21:00)
[2019-06-02] MEDS: INSULIN LISPRO 100 UNITS/ML PEN SUBCU SCH ×8 (00:26→20:22)
[2019-06-02] MEDS: MYCOPHENOLATE SODIUM 360 MG PO SCH ×3 (00:37→20:25)
[2019-06-02] MEDS: TACROLIMUS PO SCH ×3 (00:37→20:25)
[2019-06-02] MEDS: SODIUM CHLORIDE 0.9% 1000ML 1,000 ML IVS PRN ×2 (03:59→19:41)
[2019-06-02] MEDS ORDERED: predniSONE 5 MG TAB PO SCH (07:00)
[2019-06-02] MEDS ORDERED: ATORVASTATIN 10 MG TAB PO SCH (07:00)
[2019-06-02] MEDS ORDERED: ASPIRIN (ENTERIC COATED) 81 MG TAB PO SCH (07:00)
[2019-06-02] MEDS ORDERED: VERAPAMIL HCL 240 MG PO SCH (07:00)
[2019-06-02] MEDS: [UNRECOGNIZED DRUG - OTHER] PO SCH ×3 (08:03→17:37)
[2019-06-02] MEDS: METOPROLOL TARTRATE 50 MG TAB PO SCH ×2 (08:30→20:23)
[2019-06-02] MEDS: CLOPIDOGREL 75 MG TAB PO SCH (08:31)
[2019-06-02] MEDS: ASPIRIN (ENTERIC COATED) 81 MG TAB PO SCH (08:31)
[2019-06-02] MEDS: VERAPAMIL ER 120 MG TAB PO SCH (08:31)
[2019-06-02] MEDS: predniSONE 5 MG TAB PO SCH (08:31)
[2019-06-02] MEDS: ATORVASTATIN 10 MG TAB PO SCH (08:31)
[2019-06-02] MEDS: FEBUXOSTAT 40 MG PO SCH (08:33)
[2019-06-02] MEDS: NON-FORMULARY MEDICATION 1 EA MIS (Tiotropium Bromide-Olodaterol [Stiolto Respimat 2.5-2.5 IN SCH (08:33)
[2019-06-02] MEDS: PANTOPRAZOLE SODIUM TAB 40 MG PO SCH (09:16)
[2019-06-02] MEDS ORDERED: COLCHICINE 0.6 MG TAB PO SCH (17:00)
[2019-06-02] MEDS ORDERED: levETIRAcetam 250 MG TAB PO SCH (21:00)
[2019-06-02] MEDS ORDERED: AMITRIPTYLINE HCL 25 MG TAB PO SCH (21:00)
--- NOTE | 2019-06-02 22:16 | PN ---
DATE: 06/02/19 SUPERVISING PHYSICIAN: Celestino Kyle M.D. SUBJECTIVE: The patient's blood sugars are still fairly erratic going from as low as 60 back to 300. I did work with him on his meter. He CGM which is a G6. In fact, I replaced his G6 sensor today. We did replace his Omnipod. I discussed with his family member present the fact that the sensor probably needed to be replaced and calibrated. Will await that calibration and continue to monitor the patient's blood sugars to ensure that he is still remaining stable. OBJECTIVE: VITAL SIGNS: Temperature 98.5, pulse 72, blood pressure 122/69, respirations 16, satting 98% on room air. GENERAL: The patient is resting comfortably. Appears to be in no acute distress. CHEST: Clear to auscultation. HEART: Regular rate and rhythm. ABDOMEN: Soft, non-tender. Positive bowel sounds. EXTREMITIES: Without any edema. NEUROLOGIC: He is alert and oriented times three. LABORATORY: Blood sugars on bedside monitor are ranging between 58 to 340. Calcium was 8.2 this morning. Sodium was 134, potassium 3.3, magnesium 1.8. ASSESSMENT: 1. Hyperglycemia with erratic blood sugars with the patient being on an insulin pump and continued glucose monitor without any current evidence of any hyperosmolar hyperglycemic state or diabetic ketoacidosis but requiring ongoing monitoring and further education and management of his insulin regimen. 2. Hyponatremia returning to baseline. 3. Electrolyte imbalance including hypomagnesemia with normalizing. 4. Dehydration secondary to hyperglycemia, improving with fluids. 5. History of renal transplant on immunosuppressive medications. 6. Hypertension. 7. 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 PLAN: Will continue to work with him on his insulin pump and his CGM. I replaced his sensor on his CGM. Will calibrate that as needed. Will continue on an 1800 calorie diet. Will follow the insulin as correct per sliding scale. I did discuss with the family members. They were wanting to try to go to a different longterm, at this point it will be [facility]. We are waiting for that approval hopefully tomorrow. His blood sugars are still remaining erratic going down as low into the 50s and up to high 300s. Hopefully with the change in his CGM and further closely monitoring his blood sugars we can better control those. Until then will continue to monitor and treat as needed. #[id number] [facility]TD[facility]
[2019-06-03] MEDS: INSULIN LISPRO 100 UNITS/ML PEN SUBCU SCH ×4 (00:13→11:49)
[2019-06-03] MEDS: SODIUM CHLORIDE 0.9% 1000ML 1,000 ML IVS PRN (02:04)
[2019-06-03] MEDS: PANTOPRAZOLE SODIUM TAB 40 MG PO SCH (06:11)
[2019-06-03] MEDS: TACROLIMUS PO SCH (08:12)
[2019-06-03] MEDS: FEBUXOSTAT 40 MG PO SCH (08:12)
[2019-06-03] MEDS: [UNRECOGNIZED DRUG - OTHER] PO SCH ×2 (08:12→11:54)
[2019-06-03] MEDS: MYCOPHENOLATE SODIUM 360 MG PO SCH (08:12)
[2019-06-03] MEDS: VERAPAMIL ER 120 MG TAB PO SCH (08:13)
[2019-06-03] MEDS: CLOPIDOGREL 75 MG TAB PO SCH (08:13)
[2019-06-03] MEDS: ATORVASTATIN 10 MG TAB PO SCH (08:13)
[2019-06-03] MEDS: METOPROLOL TARTRATE 50 MG TAB PO SCH (08:13)
[2019-06-03] MEDS: predniSONE 5 MG TAB PO SCH (08:13)
[2019-06-03] MEDS: ASPIRIN (ENTERIC COATED) 81 MG TAB PO SCH (08:13)
[2019-06-03] MEDS: NON-FORMULARY MEDICATION 1 EA MIS (Tiotropium Bromide-Olodaterol [Stiolto Respimat 2.5-2.5 IN SCH (09:05)
[2019-06-03 10:15] VITALS: BP 125/74; TEMP 98.2; O2SAT 95
[2019-06-03] MEDS ORDERED: POTASSIUM CHLORIDE 20 MEQ TAB PO ONE (10:37)
[2019-06-03] MEDS ORDERED: MAGNESIUM SULFATE PREMIX 2GM 2 GM in PREMIX BAG 1 BAG IVPB ONE (10:37)
[2019-06-03] MEDS ORDERED: MAGNESIUM SULFATE PREMIX 2GM 50 ML IVPB ONE (10:39)
[2019-06-03] MEDS ORDERED: ENOXAPARIN SODIUM 40 MG/0.4 ML SYG SUBCU SCH (21:00)
--- NOTE | 2019-06-06 16:00 | DS ---
SUPERVISING PHYSICIAN: Manohar Daigle MD ADMISSION DIAGNOSIS: 1. Hyperglycemia without evidence of hyperosmolar hyperglycemic state or diabetic ketoacidosis. 2. Hyponatremia. 3. Electrolyte imbalance (hypomagnesemia). 4. Dehydration secondary to hyperglycemia. 5. History of renal transplant on immunosuppressive medications. 6. Hypertension. 7. 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 DISCHARGE DIAGNOSIS: 1. Hyperglycemia with erratic blood sugars with the patient being on an insulin pump and continued glucose monitor without any current evidence of any hyperosmolar hyperglycemic state or diabetic ketoacidosis but requiring ongoing monitoring and further education and management of his insulin regimen. 2. Hyponatremia returning to baseline. 3. Electrolyte imbalance including hypomagnesemia with normalizing. 4. Dehydration secondary to hyperglycemia, improving with fluids. 5. History of renal transplant on immunosuppressive medications. 6. Hypertension. 7. 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 8. Urinary tract infection with Escherichia coli. REASON FOR HOSPITALIZATION: This is a 54 year-old male patient who resides at [facility]. He came today for dizziness. Apparently that is his only real complaint. While in the Emergency Room, his labs showed a blood sugar of over 800. He has an insulin pump and a subcutaneous glucose monitor that states that the glucose has been around the 100s, so it seems that it was probably malfunctioning. In the Emergency Room, he got a liter and a half of saline and continuance of IV insulin, however given the fact that his blood sugar was in the 800s it was felt that they could not drop it low enough in the Emergency Room and send him back to [facility], so he was referred for admission. By the time he got to the floor, his glucose was actually in the 300s. He is alert and oriented. He is a somewhat poor historian. LABORATORY: White count 9,300, hemoglobin 12.1, hematocrit 38.2, platelet count 248,000, differential slight left shift. Blood gas analysis on admission was within normal limits with a pH 7.35. Chemistries initially on admission showed blood sugar 808 with sodium 125, corrected for hyperglycemia of 136 and potassium 4.1, BUN 51, creatinine 2.93. Liver functions all within normal limits. Prior to discharge, creatinine had gone down to 1.67, sodium 134, blood sugars were stable between 74 and 182. Magnesium was at 1.5 and replaced prior to discharge. Urinalysis on admission was within normal limits. Prior to discharge, showed positive nitrites, WBCs 10 to 20, bacteria 3+. RADIOLOGY: Chest x-ray on admission was without any acute findings. MICROBIOLOGY: Urine culture showed a gram negative kristin. HOSPITAL COURSE: Mr. Bolivar was admitted for hyperglycemia with no evidence of of diabetic ketoacidosis or HHNK. He was started on an insulin regimen utilizing initially sliding scale. His CGM was recalibrated and he was utilizing his Omnipod for insulin and stable prior to discharge. The patient was complaining of a little dysuria prior to discharge. Urine culture was pending at time of discharge. The patient was showing improvement with regards to his blood sugars. He was started on some potassium because his potassium was low as well as magnesium oxide for magnesium replacement. Antibiotics were started at time of discharge pending final culture results. The patient was showing clinical improvement and stabilization of blood sugars and therefore was to be discharged to [facility] once family members had made arrangements to transfer the patient from [facility]. DISCHARGE ASSESSMENT: VITAL SIGNS: Temperature 98.2. Pulse 89. Blood pressure 125/74. Respirations 18. Saturation 95% on room air. GENERAL: The patient is resting comfortably, appeared to be in no acute distress. CHEST: Clear to auscultation. HEART: Regular rate and rhythm. ABDOMEN: Soft, nontender, the patient bowel sounds. EXTREMITIES: Without edema. NEUROLOGIC: Alert and oriented times three. PLAN: Mr. Bolivar was discharged to [facility] to be followed by Dr. Daigle. Diabetic diet was ordered. He was to have physical therapy consultation and evaluation. He was to utilize his own insulin sliding scale with CGM and Omnipod. Cultures results pending at discharge with those results to be called to Dr. Daigle for further treatment as necessary. All other medications were resumed as prior to discharge with those medications listed as: 1. Vitamin D 1 capsule daily 2. Insulin sliding scale per Omnipod. 3. Verapamil 240 mg daily. 4. Tacrolimus 2 capsules daily. 5. Febuxostat 40 mg daily. 6. Stiolto 2 inhaled daily. 7. Prednisone 5 mg daily. 8. Myfortic 360 mg b.i.d. 9. Metoprolol 50 mg b.i.d. 10. Keppra 500 mg at bedtime. 11. Lipitor 10 mg daily. 12. Hydralazine 100 mg q.8h. 13. Lasix 40 mg daily. 14. Magnesium 200 mg daily. 15. Creon [id number] units 2 capsules t.i.d. with food. 16. Colchicine 1.2 mg every other day. 17. Plavix 75 mg daily. 18. Aspirin 81 mg daily. 19. Elavil 100 mg daily. 20. Micro-K 10 mEq daily. 21. Magnesium oxide 400 mg daily. 22. Tylenol 500 mg q.4h. as needed. CONDITION ON DISCHARGE: Stable and improved. DISPOSITION: Discharge the patient to [facility]. #[id number] [facility]
[2019-06-07] MEDS ORDERED: ERGOCALCIFEROL PO SCH (18:41)
== END 2019-06-03 13:27 ==
LOC: ER 14:09 → MS 17:45
PROVIDERS: ADMIT Nurse Practitioner; ATTEND Nurse Practitioner Family
DX: E10.65 Type 1 diabetes mellitus with hyperglycemia (principal); E87.1 Hypo-osmolality and hyponatremia; E83.42 Hypomagnesemia; E87.8 Other disorders of electrolyte and fluid balance, not elsewhere classified; E86.0 Dehydration; Z94.0 Kidney transplant status; I11.0 Hypertensive heart disease with heart failure; I50.9 Heart failure, unspecified; R42 Dizziness and giddiness; R00.1 Bradycardia, unspecified; E78.00 Pure hypercholesterolemia, unspecified; K50.90 Crohn's disease, unspecified, without complications; G40.909 Epilepsy, unspecified, not intractable, without status epilepticus; M10.9 Gout, unspecified; Q85.00 Neurofibromatosis, unspecified; Z96.41 Presence of insulin pump (external) (internal); Z79.4 Long term (current) use of insulin; Z79.82 Long term (current) use of aspirin; Z79.899 Other long term (current) drug therapy; Z90.410 Acquired total absence of pancreas; Z90.81 Acquired absence of spleen; Z90.49 Acquired absence of other specified parts of digestive tract; Z86.73 Personal history of transient ischemic attack (TIA), and cerebral infarction without residual deficits
CPT/HCPCS: 96361 ×3; 96366; 96365; 96375; 96372 ×3; J7512 ×2; J7040; J7030 ×5; J3475 ×2; J1815; 80048 ×2; 80053; 87086; 82948 ×18; 83036; 36415 ×5; 87077; 87186; 81001 ×2; 85025; 83735 ×3; 84484; 36416 ×10; 71046; 82803; 36600; 82805; 99285; 93005; G0378

== ENCOUNTER → 2020-04-26 | Outpatient (CLI) | payer MEDICARE, MEDICAID | LOC: GMAM 12:56 | PROVIDERS: ATTEND Family Medicine | DX: R94.6 Abnormal results of thyroid function studies (principal) ==

== ENCOUNTER → 2020-05-12 | Outpatient (CLI) | payer MEDICARE, MEDICAID | LOC: GT 20:43 | PROVIDERS: ATTEND Family Medicine | DX: J18.9 Pneumonia, unspecified organism (principal); Z13.89 Encounter for screening for other disorder ==

== ENCOUNTER 2020-05-16 19:32 | Emergency (ER) | payer MEDICARE, MEDICAID ==
[2020-05-16] MEDS ORDERED: SODIUM CHLORIDE 0.9% 1000ML 1,000 ML ONE (21:07)
[2020-05-16] MEDS ORDERED: SODIUM CHLORIDE 0.9% 1000ML 1,000 ML IVS ONE ×2 (21:07→23:37)
[2020-05-16] MEDS ORDERED: INSULIN LISPRO 100 UNITS/ML PEN SUBCU ONE (21:18)
--- NOTE | 2020-05-16 21:35 | RAD ---
XR CHEST 1 VIEW HISTORY: Weakness, repeat falls. COMPARISON: 06/01/2019 FINDINGS: The heart size is within normal limits. There is no pulmonary vascular congestion. There are patchy airspace opacities in both lungs. No pleural effusions or pneumothorax. No acute bony findings are seen. IMPRESSION: Mild patchy bilateral airspace opacities, which may represent pneumonia; please correlate for Covid infection. Electronically signed by: Tahir Becker MD 05/16/2020 9:33 PM [employer]
[2020-05-16] MEDS ORDERED: MEROPENEM 500 MG in SODIUM CHL 0.9% 50ML MIN-BAG+ 50 ML IVPB ONE (21:50)
[2020-05-16] MEDS ORDERED: LINEZOLID IV 600 MG in PREMIX BAG 1 BAG IVPB ONE (21:54)
--- NOTE | 2020-05-16 22:23 | CT ---
EXAM: CT Abdomen and Pelvis Without Intravenous Contrast CLINICAL HISTORY: The patient is 54 years old and is Male; gu bleed, hx distant kidney transplant TECHNIQUE: Axial computed tomography images of the abdomen and pelvis without intravenous contrast. Sagittal and coronal reformatted images were created and reviewed. This CT exam was performed using one or more of the following dose reduction techniques: automated exposure control, adjustment of the mA and/or kV according to patient size, and/or use of iterative reconstruction technique. COMPARISON: CT of the abdomen and pelvis July 09, 2018 FINDINGS: LUNG BASES: Scattered peripheral bilateral groundglass opacities are noted within the visualized lower lobes, right middle lobe, lingula. HEART: The heart is prominent. ABDOMEN: LIVER: Homogeneous without focal mass. GALLBLADDER AND BILE DUCTS: Surgical clips are present in the right upper quadrant, consistent with previous cholecystectomy. Small amount of pneumobilia is present within the left hepatic lobe, similar to prior exam. PANCREAS: Unremarkable. No ductal dilation. SPLEEN: The spleen is not seen and is likely surgically absent. ADRENALS: Unremarkable. No mass. KIDNEYS AND URETERS: The [place] kidneys are surgically absent. Right lower quadrant transplant kidney is present. There is no hydronephrosis or hydroureter. STOMACH AND BOWEL: A moderate to large amount of stool is present throughout colon. The stomach is decompressed. Trace amount of high density material is present within the stomach which may be secondary to ingested contents. The small bowel demonstrates a few slightly prominent loops demonstrating air-fluid levels within the upper right abdomen. The remainder the small bowel is relatively normal in caliber. There is no overt obstruction. PELVIS: APPENDIX: No findings to suggest acute appendicitis. BLADDER: The bladder is nearly decompressed with a Escalona catheter in place. Diffuse bladder wall thickening is present. No stones. REPRODUCTIVE: Unremarkable as visualized. ABDOMEN and PELVIS: INTRAPERITONEAL SPACE: Unremarkable. No free air. No significant fluid collection. BONES/JOINTS: The bones are sclerotic which may be secondary to renal osteodystrophy. SOFT TISSUES: Moderate sized fat containing inguinal hernias are present. VASCULATURE: Atherosclerosis of the vasculature is present. No abdominal aortic aneurysm. LYMPH NODES: Unremarkable. No enlarged lymph nodes. IMPRESSION: 1. Diffuse bladder wall thickening which may be secondary to incomplete distention; however, cystitis is within the differential. 2. Right lower quadrant transplant kidney without evidence of hydronephrosis or hydroureter. 3. Chronic findings as detailed above. Electronically signed by: Loretta Peck MD 05/16/2020 10:21 PM [facility]
[2020-05-17] MEDS ORDERED: methylPREDNISolone SODIUM SUC 125 MG/2 ML VIAL IV ONE (01:12)
[2020-05-17] MEDS ORDERED: INSULIN LISPRO 100 UNITS/ML PEN SUBCU ONE (01:19)
--- NOTE | 2020-05-17 01:46 | ED.PDOC ---
History of Present Illness - General Chief Complaint: General Time Seen by Provider: 05/16/20 19:59 Source: patient, EMS notes reviewed, custodial records Exam Limitations: clinical condition - History of Present Illness Initial Comments: The patient is a 54-year-old male presented emergency room by EMS secondary to multiple falls with increased generalized weakness and some hematuria today. He reports he has not hurt himself in the falls. On initial evaluation, mentation is slow and the patient is moderately obtunded. He does move all extremities and protect his airway and he is able to speak but speech is slurred and thought processes are not clear initially. On tilt exam the patient's blood pressure drops about 40 points on the systolic down into the 60s. Patient does have a chronic Escalona catheter in place. He has had a history of recurrent urinary tract infections and chronic renal insufficiency. He also has numerous other longstanding medical problems. Blood sugars have apparently been moderately elevated as well. The patient does take multiple diuretics and has had multiple episodes of acute on chronic renal insufficiency due to dehydration and urinary tract infections in the past. Timing/Duration: unsure Severity: severe Improving Factors: immobilization Worsening Factors: movement Associated Symptoms: loss of appetite, malaise, weakness Allergies/Adverse Reactions: Allergies Sulfamethoxazole w/Trimethoprim [From Bactrim] Allergy (Verified 05/16/20 21:37) Home Medications: Ambulatory Orders Atorvastatin Calcium [Lipitor] 10 mg PO DAILY@69902/26/16 Pancrelipase (Lipase-Protease- [Creon [id number] Unit] 2 cap PO TIDFD 02/26/16 Prednisone 5 mg PO DAILY@69902/26/16 Verapamil HCl [Verelan] 240 mg PO DAILY@69902/26/16 Aspirin [Aspirin EC] 81 mg PO DAILY@69906/15/16 Mycophenolate Sodium [Myfortic] 360 mg PO BID 12/25/17 Amitriptyline HCl [Elavil] 100 mg PO BEDTIME 07/09/18 Colchicine 1.2 mg PO MOWEFR 07/09/18 Ergocalciferol [Vitamin D] 1 capsule PO TH 07/09/18 Glucagon HCl (Diagnostic) [Glucagon HCl Diagnostic] 1 mg SC PRN PRN 07/09/18 Hydralazine HCl [Hydralazine Hydrochloride] 100 mg PO Q8H 07/09/18 Insulin Lispro [Humalog] 0 unit SC AC PRN 07/09/18 Levetiracetam 500 mg PO BEDTIME 07/09/18 Metoprolol Tartrate 50 mg PO BID 07/09/18 Tacrolimus 2 capsule PO BID 07/09/18 Tiotropium Iva-Olodaterol [Stiolto Respimat 2.5-2.5 Mcg/Act] 2 inh IN DAILY 07/09/18 Clopidogrel Bisulfate 75 mg PO DAILY 06/01/19 Esomeprazole Magnesium 20 mg PO DAILY 06/01/19 Febuxostat 40 mg PO DAILY 06/01/19 Furosemide 40 mg PO DAILY 06/01/19 Acetaminophen [Mapap] 500 mg PO Q4H PRN #30 cap 06/03/19 Magnesium Oxide [Mag-Ox Tab] 400 mg PO DAILY #30 tab 06/03/19 Potassium Chloride Tab [Micro-K] 10 meq PO DAILY #30 tab 06/03/19 Review of Systems - Review of Systems Constitutional: States: malaise, weakness EENTM: States: no symptoms reported Respiratory: States: short of breath - On exertion Cardiology: States: no symptoms reported Gastrointestinal/Abdominal: States: no symptoms reported Genitourinary: States: no symptoms reported, see HPI Musculoskeletal: States: no symptoms reported Skin: States: no symptoms reported Neurological: States: see HPI Endocrine: States: no symptoms reported All other Systems: No Change from Baseline Past Medical History (General) - Patient Medical History Hx Seizures: No Hx Stroke: No Hx Dementia: No Hx Asthma: No Hx of COPD: No Hx Cardiac Disorders: Yes - hypercholesterolemia Hx Congestive Heart Failure: Yes Hx Pacemaker: No Hx Hypertension: Yes Hx Thyroid Disease: No Hx Diabetes: Yes Hx Gastroesophageal Reflux: Yes - Crohn's Hx Renal Disease: Yes - kidney transplant in 1994 for hx ESRD Hx Cancer: Yes Hx of HIV: No Hx Hepatitis C: No Hx MRSA: No - Vaccination History Hx Tetanus, Diphtheria Vaccination: No - unknown Hx Influenza Vaccination: No - unknown Hx Pneumococcal Vaccination: No - unknown Immunizations Up to Date: No - unknown - Social History Hx Tobacco Use: No Hx Chewing Tobacco Use: No Hx Alcohol Use: No Hx Substance Use: No Hx Substance Use Treatment: No Hx Depression: No Hx Physical Abuse: No Hx Emotional Abuse: No - Activities of Daily Living Jail/Assisted Living (if applicable):: [facility] - Female History Patient : No Family Medical History - Family History Father Family History: Unknown Living Status: Unknown Hx Family Hypertension: Yes Hx Cardiac Disease: Yes Hx Family;Other: neurofibromatosis mom/sister Physical Exam - Physical Exam General Appearance: Alert, Frail, Ill Appearing Eye Exam: bilateral normal Ears, Nose, Throat: hearing grossly normal, normal pharynx Neck: non-tender, supple Respiratory: lungs clear, normal breath sounds, no respiratory distress, no accessory muscle use Cardiovascular/Chest: normal peripheral pulses, regular rate, rhythm, no edema Peripheral Pulses: radial,right: 2+, radial,left: 2+ Gastrointestinal/Abdominal: non tender, soft Rectal Exam: deferred Back Exam: no vertebral tenderness Neurologic: engraver letter II-XII nml as tested, alert, normal mood/affect - See history of present illness, oriented x 3 Skin Exam: pallor - He has a scab to his right forehead Comments: Vital Signs - 24 hr 05/16/20 05/16/20 05/16/20 19:45 20:32 21:00 Temperature 98.0 F Pulse Rate [ 77 80 80 monitor] Respiratory 20 14 16 Rate Blood Pressure 102/70 66/49 115/77 [Left Arm] O2 Sat by Pulse 94 L 97 97 Oximetry 05/16/20 22:00 Temperature Pulse Rate [ 78 monitor] Respiratory 16 Rate Blood Pressure 106/72 [Left Arm] O2 Sat by Pulse 96 Oximetry Progress - Progress Progress: 05/17/20 01:48 The patient is a 54-year-old male presented emergency room with what appears to be urosepsis with acute renal failure and uremia and resultant hypotension. Blood pressures and mentation have improved with hydration with 2 L of IV fluids. The patient has had blood cultures done along with urine cultures. He has been started on renal dose meropenem and a dose of IV linezolid. He has received a dose of Solu-Medrol as well for the sepsis. Blood sugars have been elevated and will need to be followed closely. He has received 2 doses of insulin lispro here. The patient is being transferred for continuation of care of above issues. He is not requiring IV pressors at this time. Acceptance of this patient is greatly appreciated due to current facility limitations in terms of availability. nigel Rivero Critical care time spent is 45 minutes for urosepsis. 05/17/20 01:52 Extended stay in the emergency room due to logistical complications with other patients. - Results/Orders Results/Orders: Coronavirus testing is negative here today. Chest x-ray shows some possible peripheral infiltrates, but not definitive. See report for details. CT scan of the abdomen pelvis shows the renal transplant without obvious acute pathology. There does appear to be signs of cystitis. Escalona catheter is of course in place. See report for details. Laboratory Tests 05/16/20 05/16/20 05/16/20 20:30 20:30 20:34 WBC RBC Hgb Hct MCV MCH MCHC RDW Plt Count MPV Absolute Neuts (auto) Absolute Lymphs (auto) Absolute Monos (auto) Absolute Eos (auto) Neutrophils % Neutrophils % (Manual) Lymphocytes % Lymphocytes % (Manual) Monocytes % Monocytes % (Manual) Eosinophils % Basophils % Band Neutrophils Nucleated RBCs Platelet Estimate Poikilocytosis Anisocytosis Crys Cells Acanthocytes (Spur) PT 9.5 INR < 1.00 PTT (SP) 29.6 D-Dimer, Quantitative 1590.0 H* Sodium 131 L Potassium 5.1 H Chloride 98 L Carbon Dioxide 16 L Anion Gap 22.1 H BUN 110 H* Creatinine 5.70 H BUN/Creatinine Ratio 19.3 POC Glucose Random Glucose 320 H Serum Osmolality Not Reportable Lactic Acid 1.5 Calcium 7.7 L Magnesium 2.9 H Total Bilirubin 0.9 AST 34 ALT 24 Alkaline Phosphatase 84 Creatine Kinase 168 CK-MB (CK-2) 2.5 CK-MB (CK-2) % Not Reportable Troponin I 0.02 B-Natriuretic Peptide 192.0 H Serum Total Protein 6.6 Albumin 3.2 Globulin 3.4 Albumin/Globulin Ratio 0.9 L Amylase 19 L Lipase < 18 L Urine Color Urine Appearance Urine pH Ur Specific Reynolds Urine Protein Urine Glucose (UA) Urine Ketones Urine Blood Urine Nitrite Urine Bilirubin Urine Urobilinogen Ur Leukocyte Esterase Urine RBC Urine WBC Ur Epithelial Cells Urine Bacteria 05/16/20 05/16/20 05/17/20 20:35 21:16 00:44 WBC 6.6 RBC 3.41 L Hgb 10.0 L Hct 30.6 L MCV 89.8 MCH 29.3 MCHC 32.6 L RDW 14.6 H Plt Count 330 MPV 11.7 H Absolute Neuts (auto) Not Reportable Absolute Lymphs (auto) Not Reportable Absolute Monos (auto) Not Reportable Absolute Eos (auto) Not Reportable Neutrophils % Not Reportable Neutrophils % (Manual) 84.0 H Lymphocytes % Not Reportable Lymphocytes % (Manual) 3.0 Monocytes % Not Reportable Monocytes % (Manual) 12.0 Eosinophils % Not Reportable Basophils % Not Reportable Band Neutrophils 1.0 Nucleated RBCs 5.0 Platelet Estimate Normal Poikilocytosis 1+ Anisocytosis 1+ Crys Cells 1+ Acanthocytes (Spur) 1+ PT INR PTT (SP) D-Dimer, Quantitative Sodium Potassium Chloride Carbon Dioxide Anion Gap BUN Creatinine BUN/Creatinine Ratio POC Glucose 357 H Random Glucose Serum Osmolality Lactic Acid Calcium Magnesium Total Bilirubin AST ALT Alkaline Phosphatase Creatine Kinase CK-MB (CK-2) CK-MB (CK-2) % Troponin I B-Natriuretic Peptide Serum Total Protein Albumin Globulin Albumin/Globulin Ratio Amylase Lipase Urine Color Red Urine Appearance Cloudy Urine pH 5.0 Ur Specific Reynolds 1.020 Urine Protein >=300 H Urine Glucose (UA) Negative Urine Ketones 15 H Urine Blood Large H Urine Nitrite Negative Urine Bilirubin Small H Urine Urobilinogen 1.0 Ur Leukocyte Esterase Large H Urine RBC Tntc H Urine WBC Tntc H Ur Epithelial Cells 0 Urine Bacteria 4+ H EKG shows normal sinus rhythm at 75 bpm. Normal axis. Slow R wave progression. No ST segment or T wave changes indicative of acute ischemia otherwise. Early right bundle branch block. Mild left atrial dilation. Departure - Departure Clinical Impression: Uremia, Delirium Urinary tract infection Qualifiers: Urinary tract infection type: catheter-associated UTI Indwelling urinary catheter type: indwelling urethral catheter Encounter type: initial encounter Qualified Code(s): T83.511A - Infection and inflammatory reaction due to indwelling urethral catheter, initial encounter; N39.0 - Urinary tract infection, site not specified Sepsis Qualifiers: Sepsis type: sepsis due to unspecified organism Sepsis acute organ dysfunction status: with acute organ dysfunction Severe sepsis acute organ dysfunction type: acute renal failure Acute renal failure type: unspecified Severe sepsis shock status: with septic shock Qualified Code(s): A41.9 - Sepsis, unspecified organism; R65.21 - Severe sepsis with septic shock; N17.9 - Acute kidney failure, unspecified Disposition: Transfer to Hospital Departure Forms: ED Discharge - Pt. Copy, Patient Portal Self Enrollment Referrals: Manohar Daigle MD [Primary Care Provider] - 1-2 Weeks Home Medications: Ambulatory Orders Atorvastatin Calcium [Lipitor] 10 mg PO DAILY@69902/26/16 Pancrelipase (Lipase-Protease- [Creon [id number] Unit] 2 cap PO TIDFD 02/26/16 Prednisone 5 mg PO DAILY@69902/26/16 Verapamil HCl [Verelan] 240 mg PO DAILY@69902/26/16 Aspirin [Aspirin EC] 81 mg PO DAILY@69906/15/16 Mycophenolate Sodium [Myfortic] 360 mg PO BID 12/25/17 Amitriptyline HCl [Elavil] 100 mg PO BEDTIME 07/09/18 Colchicine 1.2 mg PO MOWEFR 07/09/18 Ergocalciferol [Vitamin D] 1 capsule PO TH 07/09/18 Glucagon HCl (Diagnostic) [Glucagon HCl Diagnostic] 1 mg SC PRN PRN 07/09/18 Hydralazine HCl [Hydralazine Hydrochloride] 100 mg PO Q8H 07/09/18 Insulin Lispro [Humalog] 0 unit SC AC PRN 07/09/18 Levetiracetam 500 mg PO BEDTIME 07/09/18 Metoprolol Tartrate 50 mg PO BID 07/09/18 Tacrolimus 2 capsule PO BID 07/09/18 Tiotropium Iva-Olodaterol [Stiolto Respimat 2.5-2.5 Mcg/Act] 2 inh IN DAILY 07/09/18 Clopidogrel Bisulfate 75 mg PO DAILY 06/01/19 Esomeprazole Magnesium 20 mg PO DAILY 06/01/19 Febuxostat 40 mg PO DAILY 06/01/19 Furosemide 40 mg PO DAILY 06/01/19 Acetaminophen [Mapap] 500 mg PO Q4H PRN #30 cap 06/03/19 Magnesium Oxide [Mag-Ox Tab] 400 mg PO DAILY #30 tab 06/03/19 Potassium Chloride Tab [Micro-K] 10 meq PO DAILY #30 tab 06/03/19 Transfer to Outside Facility - Transfer Information Decision to Transfer Date: 05/17/20 Decision to Transfer Time: 01:51 Reason for Transfer: availability Accepting Provider:: dr vidales Accepting Facility: [facility]
[2020-05-17 05:27] VITALS: O2SAT 100
[2020-05-17 05:29] VITALS: BP 117/81; TEMP 97.5
== END 2020-05-17 03:15 | disposition short-term general hospital (02) ==
LOC: ER 19:32
DX: A41.9 Sepsis, unspecified organism (principal); R65.21 Severe sepsis with septic shock; N17.9 Acute kidney failure, unspecified; N39.0 Urinary tract infection, site not specified; T83.511A Infection and inflammatory reaction due to indwelling urethral catheter, initial encounter; R41.0 Disorientation, unspecified; I45.10 Unspecified right bundle-branch block; I95.9 Hypotension, unspecified; E78.00 Pure hypercholesterolemia, unspecified; I50.9 Heart failure, unspecified; I11.0 Hypertensive heart disease with heart failure; E11.22 Type 2 diabetes mellitus with diabetic chronic kidney disease; Z85.9 Personal history of malignant neoplasm, unspecified; Z94.0 Kidney transplant status; Z79.899 Other long term (current) drug therapy; Z79.4 Long term (current) use of insulin; Z88.2 Allergy status to sulfonamides; Z20.828 Contact with and (suspected) exposure to other viral communicable diseases
CPT/HCPCS: 71045; 74176; 80053; 81001; 82150; 82550; 82553; 82948; 83605; 83690; 83735; 83880; 84484; 85025; 85379; 85610; 85730; 87040; 87086; 87088; 87186; 87635; 93005; J1815; J2020; J2185; J2930; J7030; J7050